=== PATIENT | female | born 1935 | race Caucasian/White ===

== ENCOUNTER → 2018-03-30 | Outpatient (CLI) | payer MEDICARE ==
[2018-03-30 14:59] LABS: INR 1.9 (<1.2); Prothrombin Time 17.7 sec (9.0-12.0)
== END | disposition home or self-care (01) ==
LOC: LABWHC1 13:58
PROVIDERS: ATTEND Internal Medicine
DX: I48.0 Paroxysmal atrial fibrillation (principal)
CPT/HCPCS: 36415; 85610

== ENCOUNTER → 2018-05-04 | Outpatient (CLI) | payer MEDICARE ==
[2018-05-04 18:15] LABS: Calcium 9.5 mg/dL (8.4-10.2); Potassium 3.6 mmol/L (3.5-5.1); Total Bilirubin 0.5 mg/dL (0.2-1.3); Total Protein 6.7 g/dL (6.3-8.2)
== END | disposition home or self-care (01) ==
LOC: LABWHC1 17:45
PROVIDERS: ATTEND Internal Medicine
DX: I25.10 Atherosclerotic heart disease of native coronary artery without angina pectoris (principal)
CPT/HCPCS: 36415; 80053

== ENCOUNTER 2018-05-28 12:00 | Emergency (ER) | payer MEDICARE ==
[2018-05-28 12:18] VITALS: TEMP 98.4
[2018-05-28 13:38] LABS: Basophils # (A) 0.1 k/uL (0-0.2); Basophils % (A) 1 %; Eosinophils # (A) 0.3 k/uL (0-0.7); Eosinophils % (A) 5 %; HCT 39.5 % (34.0-46.0); HGB 12.9 gm/dL (11.4-16.0); Lymphocytes % (A) 18 %; MCH 29.6 pg (25.0-35.0); MCHC 32.5 g/dL (31.0-37.0); MCV 90.9 fL (80.0-100.0); Mean Platelet Volume 8.9; Monocytes # (A) 0.5 k/uL (0-1.0); Monocytes % (A) 8 %; Neutrophils # (A) 3.6 k/uL (1.3-7.7); Neutrophils % (A) 65 %; Platelet Count 178 k/uL (150-450); RBC 4.35 m/uL (3.80-5.40); RDW 12.7 % (11.5-15.5); WBC 5.5 k/uL (3.8-10.6)
--- NOTE | 2018-05-28 13:43 | ED ---
General Adult HPI - General Chief complaint: Arrhythmia/Palpitations Stated complaint: NAUSEA, HYPERTENSION Time Seen by Provider: 05/28/18 13:04 Source: patient, RN notes reviewed, old records reviewed Mode of arrival: wheelchair Limitations: no limitations - History of Present Illness Initial comments: 83-year-old female presents with generalized weakness and palpitations. Patient does have history of atrial fibrillation, she is currently on Coumadin. She has had multiple medication adjustments in the past several weeks to months. She was previously on Rythmol for atrial fibrillation, this medication has been discontinued, she is currently on metoprolol. She denies any chest pain. Denies fever or chills. Denies vomiting or diarrhea. She's had some nausea. Denies focal weakness or numbness. Denies headache. Patient's chief complaint is palpitations and generalized weakness. - Related Data Home Medications Medication Instructions Recorded Confirmed Budesonide-Formot 160-4.5 Mcg 2 puff INHALATION RT-BID 05/28/18 05/28/18 [Symbicort 160-4.5 Mcg Inhaler] Cholecalciferol [Vitamin D3] 5,000 unit PO DAILY 05/28/18 05/28/18 Cholestyramine (with Sugar) 2 gm PO HS 05/28/18 05/28/18 [Cholestyramine Packet] Clopidogrel [Plavix] 75 mg PO DAILY 05/28/18 05/28/18 Furosemide [Lasix] 40 mg PO DAILY 05/28/18 05/28/18 Levothyroxine Sodium [Synthroid] 137 mcg PO DAILY 05/28/18 05/28/18 Meclizine [Antivert] 12.5 mg PO TID PRN 05/28/18 05/28/18 Metoprolol Tartrate [Lopressor] 25 mg PO BID 05/28/18 05/28/18 Omeprazole 20 mg PO QAM 05/28/18 05/28/18 Potassium Chloride [Klor-Con 10] 20 meq PO BID 05/28/18 05/28/18 Warfarin [Coumadin] 2.5 mg PO FR 05/28/18 05/28/18 Warfarin [Coumadin] 5 mg PO SUMOTUWETHSA 05/28/18 05/28/18 traMADol HCL [Ultram] 50 mg PO TID PRN 05/28/18 05/28/18 Allergies Allergy/AdvReac Type Severity Reaction Status Date / Time codeine Allergy Unknown Verified 05/28/18 13:28 meperidine [From Demerol] Allergy Unknown Verified 05/28/18 13:28 narcotics Allergy Unknown Uncoded 05/28/18 12:19 Review of Systems ROS Statement: Those systems with pertinent positive or pertinent negative responses have been documented in the HPI. ROS Other: All systems not noted in ROS Statement are negative. Past Medical History Past Medical History: Atrial Fibrillation, Cancer, COPD, GERD/Reflux, Thyroid Disorder Additional Past Medical History / Comment(s): arthritis, intestional and breast cancer, IBS, BAck pain, PMR, MS, hearing loss right ear, vertigo History of Any Multi-Drug Resistant Organisms: None Reported Past Surgical History: Back Surgery, Cholecystectomy, Heart Catheterization, Hysterectomy Additional Past Surgical History / Comment(s): cataracts Past Psychological History: No Psychological Hx Reported Smoking Status: Former smoker Past Alcohol Use History: Occasional Past Drug Use History: None Reported General Exam Limitations: no limitations General appearance: alert, in no apparent distress Head exam: Present: atraumatic, normocephalic Eye exam: Present: normal appearance, PERRL ENT exam: Present: normal exam Neck exam: Present: normal inspection. Absent: tenderness, meningismus Respiratory exam: Present: normal lung sounds bilaterally. Absent: respiratory distress, wheezes Cardiovascular Exam: Present: normal rhythm, tachycardia GI/Abdominal exam: Present: soft. Absent: distended, tenderness, guarding Extremities exam: Present: pedal edema Neurological exam: Present: alert, oriented X3, CN II-XII intact. Absent: motor sensory deficit Psychiatric exam: Present: normal affect, normal mood Skin exam: Present: warm, dry, intact. Absent: cyanosis, diaphoretic Course Vital Signs 05/28/18 05/28/18 05/28/18 12:09 14:00 15:33 Temperature 98.4 F Pulse Rate 91 80 85 Respiratory 18 16 16 Rate Blood Pressure 133/82 123/69 116/70 O2 Sat by Pulse 99 99 98 Oximetry EKG Findings - EKG Comments: EKG Findings:: EKG: Atrial fibrillation, rate of 85, QRS duration 80, QTc 476, no ST segment elevation or depression Medical Decision Making - Medical Decision Making 84-year-old female presenting with palpitations. She was concerned about fluctuating vital signs at home. However this record was reviewed and there was only mildly elevated high blood pressure at 150 systolic and heart rate ranging between 70 and 100. Patient's workup in the emergency department reveals hypokalemia at 3.0 which is replaced. Patient will supplement with oral potassium at home. Remainder of her workup is unremarkable including normal chest x-ray, negative troponin, normal additional electrolytes and CBC. Patient will follow-up with her primary care physician for repeat potassium level. She is eager for discharge. - Lab Data Result diagrams: 05/28/18 13:18 05/28/18 13:18 Lab Results 05/28/18 05/28/18 05/28/18 Range/Units 13:18 13:18 13:18 WBC 5.5 (3.8-10.6) k/uL RBC 4.35 (3.80-5.40) m/uL Hgb 12.9 (11.4-16.0) gm/dL Hct 39.5 (34.0-46.0) % MCV 90.9 (80.0-100.0) fL MCH 29.6 (25.0-35.0) pg MCHC 32.5 (31.0-37.0) g/dL RDW 12.7 (11.5-15.5) % Plt Count 178 (150-450) k/uL Neutrophils % 65 % Lymphocytes % 18 % Monocytes % 8 % Eosinophils % 5 % Basophils % 1 % Neutrophils # 3.6 (1.3-7.7) k/uL Lymphocytes # 1.0 (1.0-4.8) k/uL Monocytes # 0.5 (0-1.0) k/uL Eosinophils # 0.3 (0-0.7) k/uL Basophils # 0.1 (0-0.2) k/uL PT (9.0-12.0) sec INR (<1.2) APTT (22.0-30.0) sec Sodium 137 (137-145) mmol/L Potassium 3.0 L* (3.5-5.1) mmol/L Chloride 97 L (98-107) mmol/L Carbon Dioxide 30 (22-30) mmol/L Anion Gap 10 mmol/L BUN 29 H (7-17) mg/dL Creatinine 0.80 (0.52-1.04) mg/dL Est GFR (CKD-EPI)AfAm 80 (>60 ml/min/1.73 sqM) Est GFR (CKD-EPI)NonAf 69 (>60 ml/min/1.73 sqM) Glucose 101 H (74-99) mg/dL Calcium 9.7 (8.4-10.2) mg/dL Magnesium 1.7 (1.6-2.3) mg/dL Total Bilirubin 0.6 (0.2-1.3) mg/dL AST 35 (14-36) U/L ALT 34 (9-52) U/L Alkaline Phosphatase 79 (38-126) U/L Total Creatine Kinase 51 (30-135) U/L CK-MB (CK-2) 0.8 (0.0-2.4) ng/mL CK-MB (CK-2) Rel Index 1.6 Troponin I <0.012 (0.000-0.034) ng/mL Total Protein 6.7 (6.3-8.2) g/dL Albumin 4.0 (3.5-5.0) g/dL 05/28/18 Range/Units 13:18 WBC (3.8-10.6) k/uL RBC (3.80-5.40) m/uL Hgb (11.4-16.0) gm/dL Hct (34.0-46.0) % MCV (80.0-100.0) fL MCH (25.0-35.0) pg MCHC (31.0-37.0) g/dL RDW (11.5-15.5) % Plt Count (150-450) k/uL Neutrophils % % Lymphocytes % % Monocytes % % Eosinophils % % Basophils % % Neutrophils # (1.3-7.7) k/uL Lymphocytes # (1.0-4.8) k/uL Monocytes # (0-1.0) k/uL Eosinophils # (0-0.7) k/uL Basophils # (0-0.2) k/uL PT 22.9 H (9.0-12.0) sec INR 2.6 H (<1.2) APTT 28.9 (22.0-30.0) sec Sodium (137-145) mmol/L Potassium (3.5-5.1) mmol/L Chloride (98-107) mmol/L Carbon Dioxide (22-30) mmol/L Anion Gap mmol/L BUN (7-17) mg/dL Creatinine (0.52-1.04) mg/dL Est GFR (CKD-EPI)AfAm (>60 ml/min/1.73 sqM) Est GFR (CKD-EPI)NonAf (>60 ml/min/1.73 sqM) Glucose (74-99) mg/dL Calcium (8.4-10.2) mg/dL Magnesium (1.6-2.3) mg/dL Total Bilirubin (0.2-1.3) mg/dL AST (14-36) U/L ALT (9-52) U/L Alkaline Phosphatase (38-126) U/L Total Creatine Kinase (30-135) U/L CK-MB (CK-2) (0.0-2.4) ng/mL CK-MB (CK-2) Rel Index Troponin I (0.000-0.034) ng/mL Total Protein (6.3-8.2) g/dL Albumin (3.5-5.0) g/dL Disposition Clinical Impression: Atrial fibrillation, Palpitations, Hypokalemia Disposition: HOME SELF-CARE Condition: Good Instructions: Palpitations (ED), Hypokalemia (ED) Additional Instructions: Please follow up with primary care physician for repeat potassium Level. Is patient prescribed a controlled substance at d/c from ED?: No Referrals: Nonstaff,Physician [Primary Care Provider] - 1-2 days Time of Disposition: 15:20
[2018-05-28 13:49] LABS: INR 2.6 (<1.2); Partial Thromboplastin Time 28.9 sec (22.0-30.0); Prothrombin Time 22.9 sec (9.0-12.0)
[2018-05-28 13:55] LABS: Calcium 9.7 mg/dL (8.4-10.2); Magnesium 1.7 mg/dL (1.6-2.3); Total Bilirubin 0.6 mg/dL (0.2-1.3); Total Protein 6.7 g/dL (6.3-8.2)
--- NOTE | 2018-05-28 13:58 | XR ---
EXAMINATION TYPE: XR chest 2V DATE OF EXAM: 05/28/2018 COMPARISON: NONE TECHNIQUE: PA and lateral views submitted. HISTORY: Dysrhythmia FINDINGS: The lungs are clear and there is no pneumothorax, pleural effusion, or focal pneumonia. Biapical pl eural thickening. Atherosclerotic change aorta. Hypertrophic and degenerative change spine. Hyperinfl ation suggests COPD. Surgical clips in the abdomen. IMPRESSION: 1. No acute process.
[2018-05-28 13:59] LABS: Creatine Kinase 51 U/L (30-135)
[2018-05-28] MEDS ORDERED: POTASSIUM CHLORIDE ER 20 MEQ TAB.ER PO STA (14:03)
[2018-05-28 14:12] LABS: Creatine Kinase MB 0.8 ng/mL (0.0-2.4); Troponin I <0.012 ng/mL (0.000-0.034)
[2018-05-28 14:30] VITALS: RESP 16
[2018-05-28 15:35] VITALS: BP 116/70; PULSE 85
== END 2018-05-28 15:52 | disposition home or self-care (01) ==
LOC: EC 12:00
DX: I48.91 Unspecified atrial fibrillation (principal); R00.2 Palpitations; E87.6 Hypokalemia; J44.9 Chronic obstructive pulmonary disease, unspecified; K21.9 Gastro-esophageal reflux disease without esophagitis; E07.9 Disorder of thyroid, unspecified; Z87.891 Personal history of nicotine dependence; Z85.3 Personal history of malignant neoplasm of breast; Z85.89 Personal history of malignant neoplasm of other organs and systems; Z79.01 Long term (current) use of anticoagulants; Z79.51 Long term (current) use of inhaled steroids; Z79.899 Other long term (current) drug therapy; Z88.5 Allergy status to narcotic agent; Z95.818 Presence of other cardiac implants and grafts
CPT/HCPCS: 36415; 71046; 80053; 82550; 82553; 83735; 84484; 85025; 85610; 85730; 93005; 99285

== ENCOUNTER 2019-03-29 13:05 | Emergency (ER) | payer MEDICARE ==
--- NOTE | 2019-03-29 16:35 | XR ---
PROCEDURE: XR ankle complete RT - 3V DATE AND TIME: 03/29/2019 4:28 PM CLINICAL INDICATION: PHH; Pain TECHNIQUE: Department protocol COMPARISON: None FINDINGS: The bones and joints are unremarkable. The mortise is intact. IMPRESSION: 1. Negative for fracture or malalignment. 2. Prominent ankle soft tissue swelling.
--- NOTE | 2019-03-29 18:09 | US ---
EXAMINATION TYPE: US venous doppler duplex LE DATE OF EXAM: 03/29/2019 5:40 PM COMPARISON: NONE CLINICAL HISTORY: History of DVT, right ankle swelling, left calf pa. Pain and swelling bilateral leg s x 3 days. Pt on blood thinners. Hx DVT. Hx vein stripping. SIDE PERFORMED: Bilateral TECHNIQUE: The lower extremity deep venous system is examined utilizing real time linear array sonog silvio with graded compression, doppler sonography and color-flow sonography. VESSELS IMAGED: External Iliac Vein (EIV) Common Femoral Vein Deep Femoral Vein Greater Saphenous Vein * Femoral Vein Popliteal Vein Small Saphenous Vein * Proximal Calf Veins (* superficial vessels) IMPRESSION: RIGHT LOWER EXTREMITY: No acute DVT. LEFT LOWER EXTREMITY: No definite acute DVT. Subtle mid popliteal vein internal echoes are seen, likely sequela of previous DVT. If clinically ne cessary, short interval follow-up Doppler ultrasound can be used to add specificity.
--- NOTE | 2019-03-29 18:22 | ED ---
Recheck HPI - General Chief Complaint: Recheck/Abnormal Lab/Rx Stated Complaint: Poss blood clot Source: patient Mode of arrival: ambulatory Limitations: no limitations - History of Present Illness Initial Comments: 84-year-old female presenting today for chief complaint of left calf pain. Patient states that she developed left calf pain this morning. She states she has history of blood clot when she had breast cancer she states she has remission. She states she has not had a blood clot since is on Coumadin. She states her last INR, 5 days ago was supratherapeutic 4.19. Patient states it is repeated today. Patient unsure of the value. Patient states that she bumped her right anterior gibbs has a bruise in the area noticed swelling of the ankle shortly after that. Patient denies rolling her ankle or ankle pain. Patient states she just wanted to make sure that she did not have a blood clot of the left lower extremity she's a she presented to her primary care provider and was given a prescription for an ultrasound. Patient presents emergency department however feel patient most likely meant to present for an outpatient procedure. Patient denies a chest pain shortness of breath nausea vomiting all injury to the knee leg or calf. Patient denies any coolness or pallor of the extremity. Remaining review of systems negative - Related Data Home Medications Medication Instructions Recorded Confirmed Budesonide-Formot 160-4.5 Mcg 2 puff INHALATION RT-BID 05/28/18 05/28/18 [Symbicort 160-4.5 Mcg Inhaler] Cholecalciferol [Vitamin D3] 5,000 unit PO DAILY 05/28/18 05/28/18 Cholestyramine (with Sugar) 2 gm PO HS 05/28/18 05/28/18 [Cholestyramine Packet] Clopidogrel [Plavix] 75 mg PO DAILY 05/28/18 05/28/18 Furosemide [Lasix] 40 mg PO DAILY 05/28/18 05/28/18 Levothyroxine Sodium [Synthroid] 137 mcg PO DAILY 05/28/18 05/28/18 Meclizine [Antivert] 12.5 mg PO TID PRN 05/28/18 05/28/18 Metoprolol Tartrate [Lopressor] 25 mg PO BID 05/28/18 05/28/18 Omeprazole 20 mg PO QAM 05/28/18 05/28/18 Potassium Chloride [Klor-Con 10] 20 meq PO BID 05/28/18 05/28/18 Warfarin [Coumadin] 2.5 mg PO FR 05/28/18 05/28/18 Warfarin [Coumadin] 5 mg PO SUMOTUWETHSA 05/28/18 05/28/18 traMADol HCL [Ultram] 50 mg PO TID PRN 05/28/18 05/28/18 Allergies Allergy/AdvReac Type Severity Reaction Status Date / Time codeine Allergy Unknown Verified 03/29/19 14:39 meperidine [From Demerol] Allergy Unknown Verified 03/29/19 14:39 narcotics Allergy Unknown Uncoded 03/29/19 14:39 Review of Systems ROS Statement: Those systems with pertinent positive or pertinent negative responses have been documented in the HPI. ROS Other: All systems not noted in ROS Statement are negative. Past Medical History Past Medical History: Atrial Fibrillation, Cancer, COPD, GERD/Reflux, Thyroid Disorder Additional Past Medical History / Comment(s): arthritis, intestional and breast cancer, IBS, BAck pain, PMR, MS, hearing loss right ear, vertigo History of Any Multi-Drug Resistant Organisms: None Reported Past Surgical History: Back Surgery, Cholecystectomy, Heart Catheterization, Hysterectomy Additional Past Surgical History / Comment(s): cataracts Past Psychological History: No Psychological Hx Reported Smoking Status: Former smoker Past Alcohol Use History: Occasional Past Drug Use History: None Reported General Exam - General Exam Comments Initial Comments: General: The patient is awake and alert, in no distress, and does not appear acutely ill. Eye: Pupils are equal, round and reactive to light, extra-ocular movements are intact. No nystagmus. There is normal conjunctiva bilaterally. No signs of icterus. Ears, nose, mouth and throat: There are moist mucous membranes and no oral lesions. Neck: The neck is supple, there is no tenderness or JVD. Cardiovascular: There is a regular rate and rhythm. No murmur, rub or gallop is appreciated. Respiratory: Lungs are clear to auscultation, respirations are non-labored, breath sounds are equal. No wheezes, stridor, rales, or rhonchi. Gastrointestinal: Soft, non-distended, non-tender abdomen without masses or organomegaly noted. There is no rebound or guarding present. No CVA tenderness. Bowel sounds are unremarkable. Neurological: A&O x 3. CN II-XII intact, There are no obvious motor or sensory deficits. Coordination appears grossly intact. Speech is normal. Skin: Skin is warm and dry and no rashes. No trauma of the right lower aspect of lower extremity, there is soft tissue swelling on the right ankle. No pittin g edema. No pitting edema of the left LE. Tenderness to palpation of the left posterior calf. No boggieness of achillles, pt can weight bear, percent plantar proximal of the ankles bilaterally. No pain to palpation of the knees. +2 DP pulses b/l, warm to palpation Psychiatric: Cooperative, appropriate mood & affect, normal judgment. Limitations: no limitations Course Vital Signs 03/29/19 03/29/19 14:35 18:25 Temperature 97.8 F 97.5 F L Pulse Rate 71 70 Respiratory 18 16 Rate Blood Pressure 135/87 136/87 O2 Sat by Pulse 98 99 Oximetry Medical Decision Making - Medical Decision Making Pleasant 84-year-old female presenting for rule out DVT of the left lower extremity. Bilateral ultrasound of the evidence of acute DVT. There was small area indicative of possible previous left-sided DVT which correlates with estephanie nt's past medical history. I did recommend repeat ultrasound if symptoms persist patient verbalized understanding. Patient is a pitting edema of the left lower extremity. There is no evidence of inducible Achilles tendon. Patient denies any fall or direct trauma to the left lower extremity. Extremity patient didn't hit the anterior gibbs imaging studies revealing no acute osseous process. The patient has a hematoma, that most likely progressed into swelling of the right ankle joint due to gravity. Patient on multiple occasions before imaging results came back attempted to leave the ED, I urged patient to stay. Patient is supratherapeutic on her Coumadin I have low suspicion for a acute venous thrombosis, pt requesting discharge and feel patient may leave with primary care f/u. Pt discharged without d/c VS due to attempting to leave without discharge paper work. Disposition Clinical Impression: Right leg swelling, Pain of left calf Disposition: HOME SELF-CARE Condition: Good Instructions (If sedation given, give patient instructions): Leg Edema (ED) Additional Instructions: Please use medication as discussed. Please follow-up with family doctor in the next 2 days. Please return to emergency room if the symptoms increase or worsen or for any other concerns. Is patient prescribed a controlled substance at d/c from ED?: No Referrals: Nonstaff,Physician [Primary Care Provider] - 1-2 days Time of Disposition: 18:21
[2019-03-29 18:26] VITALS: BP 136/87; PULSE 70; RESP 16; TEMP 97.5
== END 2019-03-29 18:24 | disposition home or self-care (01) ==
LOC: EC 13:05
DX: M79.605 Pain in left leg (principal); M79.89 Other specified soft tissue disorders; I48.91 Unspecified atrial fibrillation; J44.9 Chronic obstructive pulmonary disease, unspecified; K21.9 Gastro-esophageal reflux disease without esophagitis; E07.9 Disorder of thyroid, unspecified; K58.9 Irritable bowel syndrome, unspecified; Z85.3 Personal history of malignant neoplasm of breast; Z87.891 Personal history of nicotine dependence; Z79.01 Long term (current) use of anticoagulants; Z79.899 Other long term (current) drug therapy; Z79.51 Long term (current) use of inhaled steroids; Z79.890 Hormone replacement therapy; Z88.5 Allergy status to narcotic agent; Z95.818 Presence of other cardiac implants and grafts
CPT/HCPCS: 93970; 99284

== ENCOUNTER 2019-04-17 17:53 | Emergency (ER) | payer MEDICARE ==
--- NOTE | 2019-04-17 18:06 | ED ---
General Adult HPI - General Stated complaint: Fall Time Seen by Provider: 04/17/19 17:56 - History of Present Illness Initial comments: Dictation was produced using lmbang dictation software. please excuse any grammatical, word or spelling errors. Chief Complaint: 84-year-old female past medical history atrial fibrillation presents with mechanical fall. History of Present Illness: Patient is 84-year-old female she takes Coumadin for atrial fibrillation. She states she was walking up a step when she tripped over her left foot. She states she fell to her right knee. She states she hit her head on the storm door. She complains of mild pain to her left forehead and left maxillary area. Patient denies any pain anywhere else in her body. She did complain of some mild knee pain after the accident however that has since subsided. She is able to carry on scene. Told EMS and was brought to the emergency department. The ROS documented in this emergency department record has been reviewed and confirmed by me. Those systems with pertinent positive or negative responses have been documented in the HPI. All other systems are other negative and/or noncontributory. PHYSICAL EXAM: General Impression: Alert and oriented x3, not in acute distress HEENT: Minimal ecchymoses in the left lateral periorbital area, extra-ocular movements intact, pupils equal and reactive to light bilaterally, mucous membranes moist. Cardiovascular: Heart regular rate and rhythm, S1&S2 audible, no murmurs, rubs or gallops Chest: Lungs clear to auscultation bilaterally, no rhonchi, no wheeze, no rales Abdomen: Bowel sounds present, abdomen soft, non-tender, non-distended, no organomegaly Musculoskeletal: Pulses present and equal in all extremities, no peripheral edema Motor: no focal deficits noted Neurological: CN II-XII grossly intact, no focal motor or sensory deficits noted Skin: Intact with no visualized rashes Psych: Normal affect and mood ED course: 84 y Old female presents with head injury status post fall. Signs upon arrival are within acceptable limits. Patient's well-appearing. Patient is on Coumadin. Laboratory evaluation obtained. CBC, coag panel and metabolic panels obtained. Patient's potassium slightly low. She is told to eat bananas or high potassium foods for the remainder of the week. INR is 1.9. Computed tomography scan of the head and face and neck shows no acute processes. Patient clear for discharge. Given by mouth potassium prior to discharge. Return parameters discussed. - Related Data Home Medications Medication Instructions Recorded Confirmed Cholecalciferol [Vitamin D3] 5,000 unit PO DAILY 05/28/18 04/17/19 Cholestyramine (with Sugar) 2 gm PO HS 05/28/18 04/17/19 [Cholestyramine Packet] Clopidogrel [Plavix] 75 mg PO DAILY 05/28/18 04/17/19 Furosemide [Lasix] 40 mg PO DAILY 05/28/18 04/17/19 Metoprolol Tartrate [Lopressor] 25 mg PO BID 05/28/18 04/17/19 Omeprazole 20 mg PO DAILY 05/28/18 04/17/19 Warfarin [Coumadin] 2.5 mg PO WEFR 05/28/18 04/17/19 Warfarin [Coumadin] 5 mg PO SUMOTUTHSA 05/28/18 04/17/19 Albuterol Sulfate [Proair Hfa] 2 puff INHALATION RT-QID PRN 04/17/19 04/17/19 Allopurinol [Zyloprim] 100 mg PO DAILY 04/17/19 04/17/19 Fluticasone Nasal [place] [Flonase 2 spr EA NOSTRIL DAILY 04/17/19 04/17/19 Nasal [place]] Fluticasone/Salmeterol [Advair 1 puff INHALATION RT-BID 04/17/19 04/17/19 250-50 Diskus] Ipratropium Nebulized [Atrovent 0.25 mg INHALATION RT-BID PRN 04/17/19 04/17/19 Nebulized 0.2 MG/ML] Levalbuterol HCl [Xopenex 0.315 mg INHALATION RT-BID PRN 04/17/19 04/17/19 Nebulized] Levothyroxine Sodium [Synthroid] 100 mcg PO DAILY 04/17/19 04/17/19 Metolazone [Zaroxolyn] 2.5 mg PO MOWEFR 04/17/19 04/17/19 Potassium Chloride ER [K-Dur 20] 40 meq PO DAILY 04/17/19 04/17/19 Rosuvastatin Calcium [Crestor] 5 mg PO HS 04/17/19 04/17/19 Zinc 50 mg PO DAILY 04/17/19 04/17/19 Allergies Allergy/AdvReac Type Severity Reaction Status Date / Time codeine Allergy Unknown Verified 04/17/19 18:44 meperidine [From Demerol] Allergy Unknown Verified 04/17/19 18:44 narcotics Allergy Unknown Uncoded 04/17/19 18:44 Review of Systems ROS Statement: Those systems with pertinent positive or pertinent negative responses have been documented in the HPI. ROS Other: All systems not noted in ROS Statement are negative. Past Medical History Past Medical History: Atrial Fibrillation, Cancer, COPD, GERD/Reflux, Thyroid Disorder Additional Past Medical History / Comment(s): arthritis, intestional and breast cancer, IBS, BAck pain, PMR, MS, hearing loss right ear, vertigo History of Any Multi-Drug Resistant Organisms: None Reported Past Surgical History: Back Surgery, Cholecystectomy, Heart Catheterization, Hysterectomy Additional Past Surgical History / Comment(s): cataracts Past Psychological History: No Psychological Hx Reported Smoking Status: Former smoker Past Alcohol Use History: Occasional Past Drug Use History: None Reported Course Vital Signs 04/17/19 18:04 Temperature 97.9 F Pulse Rate 88 Respiratory 18 Rate Blood Pressure 147/90 O2 Sat by Pulse 97 Oximetry Medical Decision Making - Lab Data Result diagrams: 04/17/19 18:15 04/17/19 18:15 Lab Results 04/17/19 04/17/19 04/17/19 Range/Units 18:15 18:15 18:15 WBC 7.4 (3.8-10.6) k/uL RBC 4.32 (3.80-5.40) m/uL Hgb 12.8 (11.4-16.0) gm/dL Hct 39.5 (34.0-46.0) % MCV 91.5 (80.0-100.0) fL MCH 29.7 (25.0-35.0) pg MCHC 32.5 (31.0-37.0) g/dL RDW 14.1 (11.5-15.5) % Plt Count 169 (150-450) k/uL Neutrophils % 72 % Lymphocytes % 16 % Monocytes % 7 % Eosinophils % 3 % Basophils % 1 % Neutrophils # 5.3 (1.3-7.7) k/uL Lymphocytes # 1.2 (1.0-4.8) k/uL Monocytes # 0.5 (0-1.0) k/uL Eosinophils # 0.2 (0-0.7) k/uL Basophils # 0.1 (0-0.2) k/uL PT 18.4 H (9.0-12.0) sec INR 1.9 H (<1.2) Sodium 138 (137-145) mmol/L Potassium 3.1 L (3.5-5.1) mmol/L Chloride 95 L (98-107) mmol/L Carbon Dioxide 34 H (22-30) mmol/L Anion Gap 9 mmol/L BUN 31 H (7-17) mg/dL Creatinine 0.96 (0.52-1.04) mg/dL Est GFR (CKD-EPI)AfAm 63 (>60 ml/min/1.73 sqM) Est GFR (CKD-EPI)NonAf 55 (>60 ml/min/1.73 sqM) Glucose 120 H (74-99) mg/dL Calcium 9.5 (8.4-10.2) mg/dL Disposition Clinical Impression: Fall, Head contusion Disposition: HOME SELF-CARE Condition: Good Instructions (If sedation given, give patient instructions): Fall Prevention for Older Adults (ED) Is patient prescribed a controlled substance at d/c from ED?: No Referrals: Nonstaff,Physician [Primary Care Provider] - 1-2 days Time of Disposition: 19:29
[2019-04-17 18:08] VITALS: RESP 18; TEMP 97.9
[2019-04-17 18:35] LABS: Basophils # (A) 0.1 k/uL (0-0.2); Basophils % (A) 1 %; Eosinophils # (A) 0.2 k/uL (0-0.7); Eosinophils % (A) 3 %; HCT 39.5 % (34.0-46.0); HGB 12.8 gm/dL (11.4-16.0); Lymphocytes # (A) 1.2 k/uL (1.0-4.8); Lymphocytes % (A) 16 %; MCH 29.7 pg (25.0-35.0); MCHC 32.5 g/dL (31.0-37.0); MCV 91.5 fL (80.0-100.0); Mean Platelet Volume 8.5; Monocytes # (A) 0.5 k/uL (0-1.0); Monocytes % (A) 7 %; Neutrophils # (A) 5.3 k/uL (1.3-7.7); Neutrophils % (A) 72 %; Platelet Count 169 k/uL (150-450); RBC 4.32 m/uL (3.80-5.40); RDW 14.1 % (11.5-15.5); WBC 7.4 k/uL (3.8-10.6)
[2019-04-17 18:40] LABS: INR 1.9 (<1.2); Prothrombin Time 18.4 sec (9.0-12.0)
[2019-04-17 18:47] LABS: Calcium 9.5 mg/dL (8.4-10.2); Potassium 3.1 mmol/L (3.5-5.1)
--- NOTE | 2019-04-17 19:06 | CT ---
EXAMINATION TYPE: CT brain cspine wo con, CT facial bones wo con DATE OF EXAM: 04/17/2019 COMPARISON: NONE HISTORY: Falling injury with headache and neck pain and facial pain.. CT DLP: combined 1089.6 mGycm. Automated Exposure Control for Dose Reduction was Utilized. TECHNIQUE: CT scan of the head, facial bones, and cervical spine are performed without contrast. FINDINGS: There is no acute intracranial hemorrhage or midline shift identified. Mild ventricular a nd sulcal prominence is present. Low-attenuation in the deep and periventricular white matter is seen . The calvarium is intact. The mandible is intact. Temporomandibular joints are maintained bilaterally. Nasal bones are intact. Zygomatic arches are intact. Orbital floors and welch are intact. There is left-sided scleral buckle noted. Some patchy fluid posterior medial left sphenoid sinus is present otherwise the paranasal sinu ses are clear. Pterygoid plates are intact. Cervical spine is visualized in its entirety from C1 through upper thoracic levels and demonstrates s traightened alignment without evidence of acute fracture or dislocation. Prevertebral soft tissue ap pears within normal limits. The C1-C2 articulation is within normal limits on the coronal images. Ve rtebral body heights are maintained. Moderate disc space narrowing C5-C6 level is seen with mild to m oderate anterior and posterior spurring. There is mild disc space narrowing C6-C7 level with mild pos terior spurring. Axial images show uncovertebral facet degenerative changes at several levels bilater ally. Reference right C3-C4 level causing asymmetric [id number] right-sided neural foraminal na rrowing. Thyroid gland is atrophic or absent. Lung apices show no pneumothorax. IMPRESSION: 1. There is no acute fracture or dislocation evident in the cervical spine. 2. No acute intracranial hemorrhage or midline shift is seen. Mild diffuse cerebral atrophy and chron ic small vessel ischemic change is appreciated. 3. No acute facial bone fracture or dislocation.
[2019-04-17] MEDS ORDERED: POTASSIUM CHLORIDE ER 20 MEQ TAB.ER PO STA (19:40)
[2019-04-17 19:53] VITALS: BP 142/91; PULSE 69
== END 2019-04-17 19:52 | disposition home or self-care (01) ==
LOC: EC 17:53
DX: S00.12XA Contusion of left eyelid and periocular area, initial encounter (principal); R68.84 Jaw pain; E07.9 Disorder of thyroid, unspecified; I48.91 Unspecified atrial fibrillation; J44.9 Chronic obstructive pulmonary disease, unspecified; K21.9 Gastro-esophageal reflux disease without esophagitis; H91.91 Unspecified hearing loss, right ear; Z87.891 Personal history of nicotine dependence; Z79.51 Long term (current) use of inhaled steroids; Z79.01 Long term (current) use of anticoagulants; Z79.899 Other long term (current) drug therapy; Z88.5 Allergy status to narcotic agent; Z85.068 Personal history of other malignant neoplasm of small intestine; Z90.49 Acquired absence of other specified parts of digestive tract; Z85.3 Personal history of malignant neoplasm of breast; Z98.49 Cataract extraction status, unspecified eye; W01.198A Fall on same level from slipping, tripping and stumbling with subsequent striking against other object, initial encounter; Y93.01 Activity, walking, marching and hiking
CPT/HCPCS: 36415; 70450; 70486; 72125; 80048; 85025; 85610; 99284

== ENCOUNTER 2019-04-30 14:52 | Observation (INO) | payer MEDICARE ==
[2019-04-30] MEDS ORDERED: PANTOPRAZOLE 40 MG/10 ML VIAL IVP STA (15:19)
[2019-04-30] MEDS ORDERED: SODIUM CHLORIDE 0.9% 500 ML 500 ML IV STA (15:19)
--- NOTE | 2019-04-30 15:30 | ED ---
General Adult HPI - General Chief complaint: GI Bleed Stated complaint: Black stools Time Seen by Provider: 04/30/19 15:19 Source: patient, RN notes reviewed Mode of arrival: ambulatory - History of Present Illness Initial comments: 84-year-old female with a past medical history of atrial fibrillation, breast and intestinal cancer, IBS, GERD, COPD, thyroid cancer presents to the emergency department for a chief complaint of diarrhea 4 days. Patient states she has had diarrhea quite often over the past 4 days. She has had left lower quadrant abdominal pain as well. Patient states today she noticed she had one black stool. No history of peptic ulcer disease. Patient currently on Coumadin for atrial fibrillation. Patient denies weakness. Patient also hit her right foot today while walking and did have some bleeding as it scraped her skin. No pain in the foot at this time. Bleeding controlled. Tetanus up-to-date.Patient has no other complaints at this time including shortness of breath, chest pain, nausea or vomiting, headache, or visual changes. - Related Data Home Medications Medication Instructions Recorded Confirmed Cholecalciferol [Vitamin D3] 5,000 unit PO DAILY 05/28/18 04/17/19 Cholestyramine (with Sugar) 2 gm PO HS 05/28/18 04/17/19 [Cholestyramine Packet] Clopidogrel [Plavix] 75 mg PO DAILY 05/28/18 04/17/19 Furosemide [Lasix] 40 mg PO DAILY 05/28/18 04/17/19 Metoprolol Tartrate [Lopressor] 25 mg PO BID 05/28/18 04/17/19 Omeprazole 20 mg PO DAILY 05/28/18 04/17/19 Warfarin [Coumadin] 2.5 mg PO WEFR 05/28/18 04/17/19 Warfarin [Coumadin] 5 mg PO SUMOTUTHSA 05/28/18 04/17/19 Albuterol Sulfate [Proair Hfa] 2 puff INHALATION RT-QID PRN 04/17/19 04/17/19 Allopurinol [Zyloprim] 100 mg PO DAILY 04/17/19 04/17/19 Fluticasone Nasal [place] [Flonase 2 spr EA NOSTRIL DAILY 04/17/19 04/17/19 Nasal [place]] Fluticasone/Salmeterol [Advair 1 puff INHALATION RT-BID 04/17/19 04/17/19 250-50 Diskus] Ipratropium Nebulized [Atrovent 0.25 mg INHALATION RT-BID PRN 04/17/19 04/17/19 Nebulized 0.2 MG/ML] Levalbuterol HCl [Xopenex 0.315 mg INHALATION RT-BID PRN 04/17/19 04/17/19 Nebulized] Levothyroxine Sodium [Synthroid] 100 mcg PO DAILY 04/17/19 04/17/19 Metolazone [Zaroxolyn] 2.5 mg PO MOWEFR 04/17/19 04/17/19 Potassium Chloride ER [K-Dur 20] 40 meq PO DAILY 04/17/19 04/17/19 Rosuvastatin Calcium [Crestor] 5 mg PO HS 04/17/19 04/17/19 Zinc 50 mg PO DAILY 04/17/19 04/17/19 Allergies Allergy/AdvReac Type Severity Reaction Status Date / Time codeine Allergy Unknown Verified 04/30/19 14:59 meperidine [From Demerol] Allergy Unknown Verified 04/30/19 14:59 narcotics Allergy Unknown Uncoded 04/30/19 14:59 Review of Systems ROS Statement: Those systems with pertinent positive or pertinent negative responses have been documented in the HPI. ROS Other: All systems not noted in ROS Statement are negative. Past Medical History Past Medical History: Atrial Fibrillation, Cancer, COPD, GERD/Reflux, Thyroid Di sorder Additional Past Medical History / Comment(s): arthritis, intestional and breast cancer, IBS, BAck pain, PMR, MS, hearing loss right ear, vertigo History of Any Multi-Drug Resistant Organisms: None Reported Past Surgical History: Back Surgery, Cholecystectomy, Heart Catheterization, Hysterectomy Additional Past Surgical History / Comment(s): cataracts Past Psychological History: No Psychological Hx Reported Smoking Status: Former smoker Past Alcohol Use History: Occasional Past Drug Use History: None Reported General Exam General appearance: alert, in no apparent distress Head exam: Present: atraumatic, normocephalic, normal inspection Eye exam: Present: normal appearance, PERRL, EOMI. Absent: scleral icterus, conjunctival injection, periorbital swelling ENT exam: Present: normal exam, mucous membranes moist Neck exam: Present: normal inspection, full ROM. Absent: tenderness, meningismus, lymphadenopathy Respiratory exam: Present: normal lung sounds bilaterally. Absent: respiratory distress, wheezes, rales, rhonchi, stridor Cardiovascular Exam: Present: regular rate, normal rhythm, normal heart sounds. Absent: systolic murmur, diastolic murmur, rubs, gallop, clicks GI/Abdominal exam: Present: soft, tenderness (Tenderness noted in the left lower quadrant, no guarding or rebound), normal bowel sounds. Absent: distended, guarding, rebound, rigid Extremities exam: Present: other (Patient has a small skin tear noted to the right third digit. Bleeding controlled. No bruising. Neurovascular status intact in the right lower extremity.) Neurological exam: Present: alert, oriented X3, CN II-XII intact Psychiatric exam: Present: normal affect, normal mood Course Vital Signs 04/30/19 04/30/19 04/30/19 14:56 15:58 17:15 Temperature 98.4 F Pulse Rate 104 H 103 H 93 Respiratory 18 16 16 Rate Blood Pressure 137/92 110/84 122/68 O2 Sat by Pulse 97 98 94 L Oximetry Medical Decision Making - Medical Decision Making 84-year-old female presents to the emergency department for a chief complaint of dark stools times one episode. Patient has had diarrhea for the past few days as well. On exam she does have left lower quadrant tenderness. Patient was st arted on Protonix. CBC unremarkable. Patient is on Coumadin, PT/INR 3.7. CMP does show a potassium of 3.0, replaced with IV and oral replacement. Magnesium 1.8. Patient was given 2.5 of oral vitamin K due to GI bleed and positive occult blood with Coumadin. CT abdomen and pelvis shows diffuse thickening of the stomach within the gastric body and fundus. Considering patient's history of black stools gastric neoplasm or peptic ulcer disease are considerations. Questionable ulcer noted of the fundal lesser curvature. Acute uncomplicated Long segment colitis also noted. There is also dilation of the small bowel at a small bowel anastomotic site in the right mid abdomen and small bowel feces sign in both indicating increased transit time. Stricture should be considered. She will be continued on Protonix. GI will be consulted. She will be admitted for further management. - Lab Data Result diagrams: 04/30/19 15:50 04/30/19 15:50 Lab Results 04/30/19 04/30/19 04/30/19 Range/Units 15:44 15:45 15:50 WBC (3.8-10.6) k/uL RBC (3.80-5.40) m/uL Hgb (11.4-16.0) gm/dL Hct (34.0-46.0) % MCV (80.0-100.0) fL MCH (25.0-35.0) pg MCHC (31.0-37.0) g/dL RDW (11.5-15.5) % Plt Count (150-450) k/uL Neutrophils % % Lymphocytes % % Monocytes % % Eosinophils % % Basophils % % Neutrophils # (1.3-7.7) k/uL Lymphocytes # (1.0-4.8) k/uL Monocytes # (0-1.0) k/uL Eosinophils # (0-0.7) k/uL Basophils # (0-0.2) k/uL PT 35.7 H (9.0-12.0) sec INR 3.7 H (<1.2) APTT 36.5 H (22.0-30.0) sec Sodium (137-145) mmol/L Potassium (3.5-5.1) mmol/L Chloride (98-107) mmol/L Carbon Dioxide (22-30) mmol/L Anion Gap mmol/L BUN (7-17) mg/dL Creatinine (0.52-1.04) mg/dL Est GFR (CKD-EPI)AfAm (>60 ml/min/1.73 sqM) Est GFR (CKD-EPI)NonAf (>60 ml/min/1.73 sqM) Glucose (74-99) mg/dL Calcium (8.4-10.2) mg/dL Magnesium (1.6-2.3) mg/dL Total Bilirubin (0.2-1.3) mg/dL AST (14-36) U/L ALT (9-52) U/L Alkaline Phosphatase (38-126) U/L Total Protein (6.3-8.2) g/dL Albumin (3.5-5.0) g/dL Stool Occult Blood Positive H (Negative) Blood Type Blood Type Confirm A Positive Blood Type Recheck Antibody Screen Spec Expiration Date 04/30/19 04/30/19 04/30/19 Range/Units 15:50 15:50 15:50 WBC 9.6 (3.8-10.6) k/uL RBC 4.15 (3.80-5.40) m/uL Hgb 12.7 (11.4-16.0) gm/dL Hct 37.9 (34.0-46.0) % MCV 91.4 (80.0-100.0) fL MCH 30.5 (25.0-35.0) pg MCHC 33.4 (31.0-37.0) g/dL RDW 14.1 (11.5-15.5) % Plt Count 195 (150-450) k/uL Neutrophils % 80 % Lymphocytes % 9 % Monocytes % 6 % Eosinophils % 3 % Basophils % 1 % Neutrophils # 7.6 (1.3-7.7) k/uL Lymphocytes # 0.9 L (1.0-4.8) k/uL Monocytes # 0.6 (0-1.0) k/uL Eosinophils # 0.2 (0-0.7) k/uL Basophils # 0.1 (0-0.2) k/uL PT (9.0-12.0) sec INR (<1.2) APTT (22.0-30.0) sec Sodium 136 L (137-145) mmol/L Potassium 3.0 L (3.5-5.1) mmol/L Chloride 94 L (98-107) mmol/L Carbon Dioxide 31 H (22-30) mmol/L Anion Gap 11 mmol/L BUN 19 H (7-17) mg/dL Creatinine 1.00 (0.52-1.04) mg/dL Est GFR (CKD-EPI)AfAm 61 (>60 ml/min/1.73 sqM) Est GFR (CKD-EPI)NonAf 53 (>60 ml/min/1.73 sqM) Glucose 133 H (74-99) mg/dL Calcium 9.6 (8.4-10.2) mg/dL Magnesium 1.8 (1.6-2.3) mg/dL Total Bilirubin 0.7 (0.2-1.3) mg/dL AST 28 (14-36) U/L ALT 16 (9-52) U/L Alkaline Phosphatase 72 (38-126) U/L Total Protein 6.4 (6.3-8.2) g/dL Albumin 4.0 (3.5-5.0) g/dL Stool Occult Blood (Negative) Blood Type A Positive Blood Type Confirm Blood Type Recheck No Previous Record Antibody Screen NEGATIVE Spec Expiration Date 05/03/2019 - 235 Disposition Clinical Impression: Melena, Gastric wall thickening, Colitis Disposition: ADMITTED IP TO THIS [facility] Condition: Fair Is patient prescribed a controlled substance at d/c from ED?: No Referrals: Nonstaff,Physician [Primary Care Provider] - 1-2 days Time of Disposition: 18:30
[2019-04-30 16:05] LABS: Basophils # (A) 0.1 k/uL (0-0.2); Basophils % (A) 1 %; Eosinophils # (A) 0.2 k/uL (0-0.7); Eosinophils % (A) 3 %; HCT 37.9 % (34.0-46.0); HGB 12.7 gm/dL (11.4-16.0); Lymphocytes # (A) 0.9 k/uL (1.0-4.8); Lymphocytes % (A) 9 %; MCH 30.5 pg (25.0-35.0); MCHC 33.4 g/dL (31.0-37.0); MCV 91.4 fL (80.0-100.0); Mean Platelet Volume 8.5; Monocytes # (A) 0.6 k/uL (0-1.0); Monocytes % (A) 6 %; Neutrophils # (A) 7.6 k/uL (1.3-7.7); Neutrophils % (A) 80 %; Platelet Count 195 k/uL (150-450); RBC 4.15 m/uL (3.80-5.40); RDW 14.1 % (11.5-15.5); WBC 9.6 k/uL (3.8-10.6)
[2019-04-30 16:19] LABS: INR 3.7 (<1.2); Partial Thromboplastin Time 36.5 sec (22.0-30.0); Prothrombin Time 35.7 sec (9.0-12.0)
[2019-04-30 16:25] LABS: Calcium 9.6 mg/dL (8.4-10.2); Magnesium 1.8 mg/dL (1.6-2.3); Total Bilirubin 0.7 mg/dL (0.2-1.3); Total Protein 6.4 g/dL (6.3-8.2)
--- NOTE | 2019-04-30 17:28 | CT ---
EXAMINATION TYPE: CT abdomen pelvis w con DATE OF EXAM: 04/30/2019 HISTORY: Pt c/o stomach pain and black stool. CT DLP: 878.3mGycm Automated Exposure Control for Dose Reduction was Utilized. CONTRAST: CT scan of the abdomen and pelvis is performed with IV Contrast, patient injected with 80 mL of Isovu e 300. COMPARISON: None. FINDINGS: LUNG BASES: Multifocal pleural thickening may be due to the basis of adjacent subsegmental atelectasi s. Right breast implant is partially visualized. Coronary artery stent is seen. Small hiatal hernia i s present. LIVER/GB: Hepatic parenchyma is diffusely hypoattenuated in comparison to that of the spleen, most co mmonly seen in hepatic steatosis. This finding limits evaluation for hepatic masses. Subcentimeter to o small to accurately characterize hepatic lesion is seen along the fissure for the falciform ligamen t on image 29.. No intrahepatic biliary ductal dilatation. Gallbladder surgically absent. PANCREAS: No significant abnormality is seen. SPLEEN: No significant abnormality is seen. ADRENALS: Slight nodularity of the adrenal glands is seen without discrete 1 cm or larger nodule. Fin dings could relate to adrenal gland hyperplasia.. KIDNEYS: No significant abnormality is seen. BOWEL: Subtle fat stranding is seen in the sigmoid colon and descending colon extending to the level of the splenic flexure. Diffuse thickening of the stomach is seen including the gastric fundus and syl dy. Questionable ulceration is seen of the fundal lesser curvature on image 26. Numerous surgical cli ps are seen in the ventral abdomen. Bowel is incompletely evaluated without contrast. Dilation of the small bowel anastomotic site in the right midabdomen is seen with small bowel feces sign indicative of increased transit time. Remainder of the small bowel remains nondilated. LYMPH NODES: No greater than 1cm abdominal or pelvic lymph nodes are appreciated. OSSEOUS STRUCTURES: No significant abnormality is seen. OTHER: Inferior vena cava filter is incidentally noted. Extensive atherosclerosis of the abdominal ao rta and its branches are seen. Aortoiliac stent is present. IMPRESSION: 1. Diffuse thickening of the stomach is seen within the gastric body and fundus. Considering this pat ient's history of black stools gastric neoplasm or peptic ulcer disease are considerations. There is a questionable ulcer of the fundal lesser curvature. Direct visualization is recommended. 2. Acute uncomplicated long segment colitis may be of infectious or inflammatory etiology. 3. Dilation of the small bowel at a small bowel anastomotic site in the right mid abdomen and small b owel feces sign in both indicating increased transit time. Main to the small bowel is nondilated. Shaye stomotic stricture should be considered.
[2019-04-30] MEDS ORDERED: POTASSIUM CHLORIDE ER 20 MEQ TAB.ER PO STA (17:46)
[2019-04-30] MEDS ORDERED: PHYTONADIONE ORAL 5 MG/5 ML ORAL.SYRG PO STA (17:46)
[2019-04-30] MEDS ORDERED: MORPHINE SULFATE 4 MG/ML SYRINGE IV PRN (18:31)
[2019-04-30] MEDS ORDERED: NALOXONE 0.4 MG/ML 1 ML VIAL IV PRN (18:31)
[2019-04-30] MEDS: POTASSIUM CHLORIDE 10 MEQ in WATER FOR INJECTION 1 100ML.BAG IVPB SCH ×4 (18:32→23:41)
[2019-04-30] MEDS: SODIUM CHLORIDE 0.9% 1,000 ML IV SCH (19:59)
[2019-04-30] MEDS ORDERED: IPRATROPIUM 0.5 MG/2.5 ML NEBU INHALATION PRN (20:35)
[2019-04-30] MEDS ORDERED: ALBUTEROL NEBULIZED 1.25 MG/3 ML INHALATION PRN (21:00)
[2019-04-30] MEDS: METOPROLOL TARTRATE 25 MG TAB PO SCH (22:03)
[2019-04-30] MEDS: PANTOPRAZOLE 40 MG/10 ML VIAL IVP SCH (22:04)
[2019-05-01] MEDS: ZOLPIDEM 5 MG TAB PO PRN (01:20)
[2019-05-01] MEDS: LEVOTHYROXINE 100 MCG TAB PO SCH (05:51)
[2019-05-01] MEDS ORDERED: SYMBICORT 80-4.5 MCG INHALER INHALATION SCH (08:00)
[2019-05-01] MEDS: METOPROLOL TARTRATE 25 MG TAB PO SCH ×2 (08:13→22:26)
[2019-05-01] MEDS: PANTOPRAZOLE 40 MG/10 ML VIAL IVP SCH ×2 (08:13→22:26)
[2019-05-01] MEDS: FUROSEMIDE 40 MG TAB PO SCH (08:13)
[2019-05-01] MEDS: POTASSIUM CHLORIDE ER 20 MEQ TAB.ER PO SCH ×5 (08:13→23:39)
[2019-05-01] MEDS: SODIUM CHLORIDE 0.9% 1,000 ML IV SCH ×2 (08:27→22:27)
[2019-05-01] MEDS ORDERED: PANTOPRAZOLE 40 MG TABLET PO SCH (09:00)
[2019-05-01] MEDS: FLUTICASONE 50MCG/SPRAY NASAL 16GM EA NOSTRIL SCH (09:27)
--- NOTE | 2019-05-01 10:59 | CONS ---
CONSULTATION DATE OF DICTATION: May 01, 2019. REQUESTING PHYSICIAN: Dr. Elida Garcia. REASON FOR CONSULTATION: Abdominal pain, melena and diarrhea. HISTORY OF PRESENT ILLNESS: The patient is an 84-year-old pleasant white female with history of atrial fibrillation on Coumadin, history of non-Hodgkin's lymphoma diagnosed 15 years ago in clinical remission, who was admitted to the hospital because of diarrhea for the last 4 days duration. She was having about 5-10 loose watery bowel movements daily but however, yesterday morning she noticed black tarry stools and also was complaining of lower abdominal cramping pain and some pain in the epigastric area. She was given antibiotics 2 weeks ago for sinus infection. She came into the emergency room and subsequently had a CT of the abdomen and pelvis done that showed thickening of the stomach especially within the gastric body and fundus and possibility of peptic ulcer disease/neoplasm could not be excluded. Hence we are consulted in regards to this issue. Also, she was noted to have dilated small bowel loops in the right side of the abdomen. Since being in the hospital, she did not have any further episodes of nausea, abdominal pain, or diarrhea. She is feeling better. On a clear liquid diet, tolerating well. She was diagnosed with non-Hodgkin's lymphoma presenting as small bowel obstruction requiring surgery at the time of diagnosis. She subsequently underwent chemotherapy and since then has been in clinical remission. No prior history of peptic ulcer disease or recent NSAID use. PAST MEDICAL HISTORY: Significant for hypertension, hyperlipidemia, atrial fibrillation on Coumadin, diabetes mellitus, gastroesophageal reflux disease, hypothyroidism, non-Hodgkin's lymphoma diagnosed 15 years ago, breast cancer. PAST SURGICAL HISTORY: Cholecystectomy, back surgery, cardiac catheterization, hysterectomy, small bowel resection, bilateral cataract surgery. MEDICATIONS: At home include Coumadin, albuterol, allopurinol, Flonase, Advair, Atrovent, , Synthroid, Zaroxolyn, Crestor. ALLERGIES: TO CODEINE AND NARCOTICS. SOCIAL HISTORY: No smoking. No alcohol use. FAMILY HISTORY: Unremarkable. REVIEW OF SYSTEMS: Cardiopulmonary: No chest pain, shortness of breath. Genitourinary: No dysuria or hematuria. MUSCULOSKELETAL unremarkable. Skin unremarkable. Endocrine unremarkable. Psychiatric unremarkable. Neurology unremarkable. ENT/vision unremarkable. Constitutional: No recent weight loss. No fever, chills, night sweats. PHYSICAL EXAMINATION: She appears comfortable. No apparent distress. VITAL SIGNS: Stable. Blood pressure is 101/55, pulse rate 86, temperature 98.4. HEENT examination unremarkable. Conjunctivae pink. Sclerae anicteric. Oral cavity no lesions. NECK: No jugular venous distention or lymph node enlargement. CHEST: Clear to auscultation. HEART: Regular rate and rhythm. ABDOMEN: Soft, nontender, nondistended. Bowel sounds are positive. No organomegaly. EXTREMITIES: No pedal edema. SKIN no rashes. NEUROLOGIC: Alert and oriented x3. No focal deficits. LABS: Done at the time of admission to the hospital, WBC 9.6, hemoglobin 12.7, platelets are normal. INR is 3.7. Basic metabolic panel is within normal limits. Stool occult blood was positive. IMPRESSION: 1. Acute onset of lower abdominal pain and diarrhea for the last 4 days duration. She was having about 5-10 loose watery bowel movements daily. Since being in the hospital, no further episodes of diarrhea. She was treated with antibiotics for sinus infection 2 weeks ago. C diff was requested but could not be done as the patient did not have any diarrhea since being in the hospital. 2. Black tarry stools x1 yesterday and stool was Hemoccult positive. CT of the abdomen and pelvis showed thickening in the fundus and gastric body suspicious for neoplasm versus peptic ulcer disease. No recent NSAID use. 3. History of non-Hodgkin's lymphoma 15 years ago in remission. 4. Atrial fibrillation on Coumadin presently on hold. She received vitamin K yesterday in the ER. Repeat INR is pending. RECOMMENDATIONS: 1. Advance diet as tolerated. 2. Continue with Protonix 40 mg daily. 3. Stool studies if she has recurrent diarrhea. 4. Repeat INR in the morning and if it is less than 1.5, we will proceed with an upper endoscopy tomorrow to investigate abnormalities noted on this CT scan and rule out peptic ulcer disease. 5. Plan was discussed with the patient. She is agreeable to it. Thank you for this consultation. MMODL / IJN: [id number] /
[2019-05-01] MEDS ORDERED: IPRATROPIUM-ALBUTEROL 3 ML NEB INHALATION PRN (12:36)
[2019-05-01] MEDS ORDERED: Potassium Replacement Protocol 1 EACH MISC MISCELLANE PRN (12:58)
--- NOTE | 2019-05-01 13:00 | P.HPIM ---
History of Present Illness This is a pleasant 84 years old female with past medical history of atrial fibrillation on Coumadin, COPD, hypothyroidism, intestinal and the breast cancer, irritable bowel syndrome, vertigo, coronary artery disease status post cardiac cath. Presents with melena and GI bleed while she is on Coumadin. Patient tripped yesterday and hurt her left toe which was bleeding without stop and she needed the help from her niece and also she was noticing some light- colored stool for the last 4 days which was concerning for her because other people in her residence with have a stomach flu so she decided to come to the emergency room. She denies abdominal pain or nausea vomiting. She had loose bowel movement for the last 4 days however this resolved and since admission she did not have bowel movement but she is passing gases. No chest pain or dyspnea or dizziness Patient vitals looks stable. Labs showing unremarkable CBC with hemoglobin within normal limits at 12.7. INR is supratherapeutic at 3.7. Sodium 137, potassium is 3, creatinine 1.0, focal occult blood in his stool is positive. EKG showing A. fib with a rate of 82. CAT scan of the abdomen and pelvis: Diffuse thickening of the stomach with possible ulcer. IVC filter is seen. And long segment of colitis, dilatation of the small bowel and anastomosis site con cerning for stricture Patient already got 1 dose of 2.5 mg of vitamin K Review of Systems CONSTITUTIONAL: No fever, no malaise, no fatigue. HEENT: No recent visual problems or hearing problems. Denied any sore throat. CARDIOVASCULAR: No orthopnea, PND, no palpitations, no syncope. PULMONARY: No shortness of breath, no cough, no hemoptysis. GASTROINTESTINAL: No diarrhea, no nausea, no vomiting, no abdominal pain. Normoactive bowel sounds. NEUROLOGICAL: No headaches, no weakness, no numbness. HEMATOLOGICAL: Denies any bleeding or petechiae. GENITOURINARY: Denies any burning micturition, frequency, or urgency. MUSCULOSKELETAL/RHEUMATOLOGICAL: Denies any joint pain, swelling, or any muscle pain. ENDOCRINE: Denies any polyuria or polydipsia. Past Medical History Past Medical History: Atrial Fibrillation, Cancer, COPD, GERD/Reflux, Thyroid Disorder Additional Past Medical History / Comment(s): arthritis, intestional and breast cancer, IBS, BAck pain, PMR, MS, hearing loss right ear, vertigo History of Any Multi-Drug Resistant Organisms: None Reported Past Surgical History: Back Surgery, Cholecystectomy, Heart Catheterization, Hysterectomy Additional Past Surgical History / Comment(s): cataracts Past Psychological History: No Psychological Hx Reported Smoking Status: Former smoker Past Alcohol Use History: Occasional Past Drug Use History: None Reported Medications and Allergies Home Medications Medication Instructions Recorded Confirmed Type Cholecalciferol [Vitamin D3] 5,000 unit PO DAILY 05/28/18 04/30/19 History Cholestyramine (with Sugar) 2 gm PO HS 05/28/18 04/30/19 History [Cholestyramine Packet] Clopidogrel [Plavix] 75 mg PO DAILY 05/28/18 04/30/19 History Furosemide [Lasix] 40 mg PO DAILY 05/28/18 04/30/19 History Metoprolol Tartrate [Lopressor] 25 mg PO BID 05/28/18 04/30/19 History Omeprazole 20 mg PO DAILY 05/28/18 04/30/19 History Warfarin [Coumadin] 2.5 mg PO FR 05/28/18 04/30/19 History Warfarin [Coumadin] 5 mg PO SUMOTUWETHSA 05/28/18 04/30/19 History Allopurinol [Zyloprim] 100 mg PO DAILY 04/17/19 04/30/19 History Fluticasone Nasal [place] [Flonase 2 spr EA NOSTRIL DAILY 04/17/19 04/30/19 History Nasal [place]] Fluticasone/Salmeterol [Advair 1 puff INHALATION RT-BID 04/17/19 04/30/19 History 250-50 Diskus] Ipratropium Nebulized [Atrovent 0.25 mg INHALATION RT-BID PRN 04/17/19 04/30/19 History Nebulized 0.2 MG/ML] Levalbuterol HCl [Xopenex 0.315 mg INHALATION RT-BID PRN 04/17/19 04/30/19 History Nebulized] Levothyroxine Sodium [Synthroid] 100 mcg PO DAILY 04/17/19 04/30/19 History Metolazone [Zaroxolyn] 2.5 mg PO MOWEFR 04/17/19 04/30/19 History Potassium Chloride ER [K-Dur 20] 40 meq PO DAILY 04/17/19 04/30/19 History Rosuvastatin Calcium [Crestor] 5 mg PO HS 04/17/19 04/30/19 History Zinc 50 mg PO DAILY 04/17/19 04/30/19 History Allergies Allergy/AdvReac Type Severity Reaction Status Date / Time codeine Allergy Unknown Verified 04/30/19 18:54 meperidine [From Demerol] Allergy Unknown Verified 04/30/19 18:54 narcotics Allergy Unknown Uncoded 04/30/19 14:59 Physical Exam Vitals: Vital Signs Temp Pulse Pulse Resp BP BP Pulse Ox 05/01/19 07:58 98.0 F 82 16 105/73 97 05/01/19 01:07 98.7 F 78 18 101/70 95 04/30/19 20:22 98.9 F 84 18 102/70 97 04/30/19 19:27 98.4 F 86 16 101/55 98 04/30/19 18:27 86 16 101/55 98 04/30/19 17:15 93 16 122/68 94 L 04/30/19 15:58 103 H 16 110/84 98 04/30/19 14:56 98.4 F 104 H 18 137/92 97 Intake and Output 04/30/19 05/01/19 05/01/19 22:59 06:59 14:59 Intake Total 730 600 Balance 730 600 Intake: Intake, IV Titration 600 Amount Sodium Chloride 0.9% 1, 600 000 ml @ 75 mls/hr IV . [id number] [facility] Rx#:[id number] Oral 730 Other: Voiding Method Toilet # Voids 3 GENERAL: The patient is alert and oriented x3, not in any acute distress. Well developed, well nourished. HEENT: Pupils are round and equally reacting to light. EOMI. No scleral icterus. No conjunctival pallor. Normocephalic, atraumatic. No pharyngeal erythema. No thyromegaly. CARDIOVASCULAR: S1 and S2 present. No murmurs, rubs, or gallops. PULMONARY: Chest is clear to auscultation, no wheezing or crackles. ABDOMEN: Soft, nontender, nondistended, normoactive bowel sounds. No palpable organomegaly. MUSCULOSKELETAL: No joint swelling or deformity. EXTREMITIES: No cyanosis, clubbing, or pedal edema. NEUROLOGICAL: Gross neurological examination did not reveal any focal deficits. SKIN: No rashes. Results CBC & Chem 7: 04/30/19 15:50 04/30/19 15:50 Labs: Abnormal Lab Results - Last 24 Hours (Table) 04/30/19 04/30/19 04/30/19 Range/Units 15:44 15:50 15:50 Lymphocytes # 0.9 L (1.0-4.8) k/uL PT 35.7 H (9.0-12.0) sec INR 3.7 H (<1.2) APTT 36.5 H (22.0-30.0) sec Sodium (137-145) mmol/L Potassium (3.5-5.1) mmol/L Chloride (98-107) mmol/L Carbon Dioxide (22-30) mmol/L BUN (7-17) mg/dL Glucose (74-99) mg/dL Stool Occult Blood Positive H (Negative) 04/30/19 Range/Units 15:50 Lymphocytes # (1.0-4.8) k/uL PT (9.0-12.0) sec INR (<1.2) APTT (22.0-30.0) sec Sodium 136 L (137-145) mmol/L Potassium 3.0 L (3.5-5.1) mmol/L Chloride 94 L (98-107) mmol/L Carbon Dioxide 31 H (22-30) mmol/L BUN 19 H (7-17) mg/dL Glucose 133 H (74-99) mg/dL Stool Occult Blood (Negative) Thrombosis Risk Factor Assmnt - Choose All That Apply Each Risk Factor Represents 3 Points: Age 75 years or older Thrombosis Risk Factor Assessment Total Risk Factor Score: 3 Thrombosis Risk Factor Assessment Level: Moderate Risk Assessment and Plan Assessment: Acute gastrointestinal bleed Thickening of the stomach wall with possible ulcer on CAT scan of the abdomen Possible stricture and the small bowel anastomosis site with possible colitis Coagulopathy secondary to Coumadin Left toe trauma, with bleeding controlled and stopped History of A. fib on Coumadin COPD, not in acute exacerbation Chronic hypothyroidism History of intestinal and breast cancer History of irritable bowel syndrome History of vertigo History of coronary artery disease status post cardiac cath Plan: This is a pleasant 84 years old female who presents with GI bleed while on Coumadin. Keep holding Coumadin. Follow up INR. GI team input is appreciated, plan for EGD. Continue with Protonix twice a day. Continue with IV fluids Labs and medication were reviewed.. Continue same treatment. Continue with s ymptomatic treatment. Resume home medication. Monitor lytes and vitals. DVT and GI prophylaxis. Further recommendations of the clinical course of the patient DVT prophylaxis: No anticoagulation in the review of GI bleed heparin GI Prophylaxis: Protonix Prognosis is guarded
[2019-05-01 14:55] LABS: Basophils % (A) 1 %; Eosinophils # (A) 0.3 k/uL (0-0.7); Eosinophils % (A) 6 %; HCT 35.8 % (34.0-46.0); HGB 11.6 gm/dL (11.4-16.0); Lymphocytes # (A) 0.8 k/uL (1.0-4.8); Lymphocytes % (A) 16 %; MCH 30.3 pg (25.0-35.0); MCHC 32.6 g/dL (31.0-37.0); MCV 92.9 fL (80.0-100.0); Mean Platelet Volume 8.3; Monocytes # (A) 0.4 k/uL (0-1.0); Monocytes % (A) 8 %; Neutrophils # (A) 3.3 k/uL (1.3-7.7); Neutrophils % (A) 67 %; Platelet Count 153 k/uL (150-450); RBC 3.85 m/uL (3.80-5.40); RDW 14.1 % (11.5-15.5); WBC 4.9 k/uL (3.8-10.6)
[2019-05-01 17:20] LABS: African American GFR (CKD) >90 (>60 ml/min/1.73 sqM); Anion Gap 8 mmol/L; Blood Urea Nitrogen 13 mg/dL (7-17); Calcium 8.7 mg/dL (8.4-10.2); Carbon Dioxide 28 mmol/L (22-30); Chloride 100 mmol/L (98-107); Glucose 152 mg/dL (74-99); Potassium 3.1 mmol/L (3.5-5.1); Sodium 136 mmol/L (137-145)
[2019-05-01] MEDS: SYMBICORT 80-4.5 MCG INHALER INHALATION SCH (20:18)
[2019-05-02] MEDS: ZOLPIDEM 5 MG TAB PO PRN (00:20)
[2019-05-02] MEDS: LEVOTHYROXINE 100 MCG TAB PO SCH ×2 (05:25→08:38)
[2019-05-02] MEDS: SODIUM CHLORIDE 0.9% 1,000 ML IV SCH (08:36)
[2019-05-02] MEDS: PANTOPRAZOLE 40 MG/10 ML VIAL IVP SCH (08:37)
[2019-05-02] MEDS: POTASSIUM CHLORIDE ER 20 MEQ TAB.ER PO SCH (08:37)
[2019-05-02] MEDS: METOPROLOL TARTRATE 25 MG TAB PO SCH (08:37)
[2019-05-02] MEDS: FUROSEMIDE 40 MG TAB PO SCH (08:37)
[2019-05-02] MEDS: FLUTICASONE 50MCG/SPRAY NASAL 16GM EA NOSTRIL SCH (08:38)
[2019-05-02] MEDS ORDERED: METOLAZONE 2.5 MG TAB PO SCH (09:00)
[2019-05-02] MEDS: SYMBICORT 80-4.5 MCG INHALER INHALATION SCH (09:08)
[2019-05-02 09:33] LABS: Basophils # (A) 0.1 k/uL (0-0.2); Basophils % (A) 1 %; Eosinophils # (A) 0.3 k/uL (0-0.7); Eosinophils % (A) 6 %; HCT 32.7 % (34.0-46.0); HGB 10.7 gm/dL (11.4-16.0); Lymphocytes % (A) 21 %; MCH 30.5 pg (25.0-35.0); MCHC 32.7 g/dL (31.0-37.0); MCV 93.3 fL (80.0-100.0); Monocytes # (A) 0.4 k/uL (0-1.0); Monocytes % (A) 8 %; Neutrophils % (A) 61 %; Platelet Count 168 k/uL (150-450); RBC 3.51 m/uL (3.80-5.40); WBC 4.8 k/uL (3.8-10.6)
[2019-05-02 09:40] LABS: INR 1.3 (<1.2); Prothrombin Time 13.6 sec (9.0-12.0)
[2019-05-02] MEDS ORDERED: LIDOCAINE 1% INJ 10MG/ML (20 ML MDV) ONE (12:52)
[2019-05-02] MEDS ORDERED: PROPOFOL 10 MG/ML 20 ML VIAL IV ONE (12:52)
[2019-05-02] MEDS ORDERED: IV FLUID CONTINUATION 1,000 ML IV ONE (12:56)
--- NOTE | 2019-05-02 13:05 | P.PCN ---
Date of Procedure: 05/02/19 Procedure(s) Performed: tBRIEF HISTORY: Patient is a 84-year-old, pleasant, white female, scheduled for an upper endoscopy as a part of evaluation of abdominal pain, associated with nausea vomiting and diarrhea. She had CT of the abdomen and pelvis done in the emergency room yesterday which showed thickening of the fundus and body of the stomach and possibility of neoplasm was suggested by the radiologist and hence she is scheduled for an upper endoscopy to evaluate further. PROCEDURE PERFORMED: Esophagogastroduodenoscopy with biopsy. PREOPERATIVE DIAGNOSIS: Abdominal CAT scan abdomen showing thickening of the fundus and body of the stomach. IV sedation per anesthesia. PROCEDURE: After informed consent was obtained, the patient was brought into the endoscopy unit. IV sedation was administered by Anesthesia under continuous monitoring. Initially the Olympus GIF-140 video endoscope was inserted into the mouth. Esophagus intubated without any difficulty. It was gradually advanced into the stomach and duodenum and carefully examined. The bulb and the second part of the duodenum appeared normal. There was a 2 mm polyp in the second part of the duodenum that was also biopsied. The scope at this time was withdrawn to the stomach, adequately insufflated with air, and upon careful examination, mucosa of the antrum, appeared normal. In the body and fundus of the stomach. Several small gastric polyps identified which were biopsied. Rest of the body, cardia and the fundus appeared normal. The scope was then withdrawn into the esophagus. The GE junction was located at 39 cm from the incisors. The esophagus appeared normal. There were no erosions or ulcerations seen and the patient tolerated the procedure well. IMPRESSION: 1. 2 mm duodenal polyp status post biopsy. 2. Several small gastric polyps in the fundus and body the stomach status post biopsy. RECOMMENDATIONS: The findings of this examination were discussed with the patient as well as a family. She was advised to follow up the biopsy results. Diet will be advanced as tolerated and patient can be discharged home today with outpatient follow-up in 2-3 weeks.
[2019-05-02 13:56] VITALS: BP 111/71; PULSE 79; RESP 16; TEMP 97.5
--- NOTE | 2019-05-02 14:02 | P.DS ---
Providers Date of admission: 04/30/19 18:56 Attending physician: Juju Rocha MD Consults: 04/30/19 18:31 Consult Physician Routine Consulting Provider: Blanca Ramsay Consult Reason/Comments: Melena, gastric thickening, possible anastomotic stricture, colitis Do you want consulting provider notified?: Yes Primary care physician: Physician Nonstaff Hospital Course: Diagnoses: Acute gastrointestinal bleed, mostly secondary to her episode of gastroenteritis on the top of her supratherapeutic INR Short episodes of gastroenteritis with diarrhea for 4 days prior to coming to the hospital, resolved Thickening of the stomach wall with possible ulcer on CAT scan of the abdomen Possible stricture and the small bowel anastomosis site with possible colitis Coagulopathy secondary to Coumadin Left toe trauma, with bleeding controlled and stopped. So History of A. fib on Coumadin COPD, not in acute exacerbation Chronic hypothyroidism History of intestinal and breast cancer History of irritable bowel syndrome History of vertigo History of coronary artery disease status post cardiac cath Hospital course: This is a pleasant 84 years old female with past medical history of atrial fibrillation on Coumadin, COPD, hypothyroidism, intestinal and the breast cancer, irritable bowel syndrome, vertigo, coronary artery disease status post cardiac cath. Presents with melena and GI bleed while she is on Coumadin. Also patient has diarrhea for 4 days. Patient tripped yesterday and hurt her left toe which was bleeding without stop and she needed the help from her niece and also she was noticing some black stool for the last 4 days which was concerning for her because other people in her residence with have a stomach flu so she decided to come to the emergency room. On admission her occult blood in stool was positive. Hemoglobin was 12.7, INR was supratherapeutic at 3.7. Patient received 1 dose of vitamin K, CAT scan of the abdomen and pelvis: Diffuse thickening of the stomach with possible ulcer, thickening of the fundus and body of the stomach and possibility of neoplasm was suggested by the radiologist , hence she's been evaluated by GI team and she underwent EGD: 2 mm duodenal polyp and small gastric polyps. Biopsies are still pending and patient is aware instructed to follow up with GI team for the results. Risks including but not limited to cancer are explained to the patient and she verbalized understanding and acceptance She denies abdominal pain or nausea vomiting. She had loose bowel movement for the last 4 days however this resolved and since admission she did not have bowel movement but she is passing gases. Yesterday patient had a small bowel movement. No chest pain or dyspnea or dizziness. Patient was cleared by GI team for discharge and resuming her Coumadin. Patient was instructed to follow up with her PCP as soon as possible to check her INR within 2-3 days Problems and management plan were discussed with the patient and he verbalized understanding and acceptance Patient was found stable and can be discharged home however he needs follow-up as an outpatient. 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 Daughter is at bedside and she took notes of these recommendations Gen: patient is a AAOx3, no distress CVS: S1-S2, RRR, no murmur Lungs: B/L CTA, no wheezing Abdomen: soft, no distention, no tenderness, positive bowel sounds Extremity: no leg edema or induration Time spent more than 35 minutes Patient Condition at Discharge: Fair Plan - Discharge Summary New Discharge Prescriptions: New Pantoprazole Sodium [Protonix] 40 mg PO BID #60 tablet. No Action Warfarin [Coumadin] 5 mg PO SUMOTUWETHSA Warfarin [Coumadin] 2.5 mg PO FR Cholecalciferol [Vitamin D3 (25 Mcg = 1000 Iu)] 5,000 unit PO DAILY Metoprolol Tartrate [Lopressor] 25 mg PO BID Cholestyramine (with Sugar) [Cholestyramine Packet] 2 gm PO HS Omeprazole 20 mg PO DAILY Furosemide [Lasix] 40 mg PO DAILY Clopidogrel [Plavix] 75 mg PO DAILY Allopurinol [Zyloprim] 100 mg PO DAILY Fluticasone Nasal [place] [Flonase Nasal [place]] 2 spr EA NOSTRIL DAILY Fluticasone/Salmeterol [Advair 250-50 Diskus] 1 puff INHALATION RT-BID Ipratropium Nebulized [Atrovent Nebulized 0.2 MG/ML] 0.25 mg INHALATION RT- BID PRN PRN Reason: Shortness Of Breath Levalbuterol HCl [Xopenex Nebulized] 0.315 mg INHALATION RT-BID PRN PRN Reason: Shortness Of Breath Levothyroxine Sodium [Synthroid] 100 mcg PO DAILY Metolazone [Zaroxolyn] 2.5 mg PO MOWEFR Potassium Chloride ER [K-Dur 20] 40 meq PO DAILY Rosuvastatin Calcium [Crestor] 5 mg PO HS Zinc 50 mg PO DAILY Discharge Medication List Cholecalciferol [Vitamin D3 (25 Mcg = 1000 Iu)] 5,000 unit PO DAILY 05/28/18 [History] Cholestyramine (with Sugar) [Cholestyramine Packet] 2 gm PO HS 05/28/18 [History] Clopidogrel [Plavix] 75 mg PO DAILY 05/28/18 [History] Furosemide [Lasix] 40 mg PO DAILY 05/28/18 [History] Metoprolol Tartrate [Lopressor] 25 mg PO BID 05/28/18 [History] Omeprazole 20 mg PO DAILY 05/28/18 [History] Warfarin [Coumadin] 2.5 mg PO FR 05/28/18 [History] Warfarin [Coumadin] 5 mg PO SUMOTUWETHSA 05/28/18 [History] Allopurinol [Zyloprim] 100 mg PO DAILY 04/17/19 [History] Fluticasone Nasal [place] [Flonase Nasal [place]] 2 spr EA NOSTRIL DAILY 04/17/19 [History] Fluticasone/Salmeterol [Advair 250-50 Diskus] 1 puff INHALATION RT-BID 04/17/19 [History] Ipratropium Nebulized [Atrovent Nebulized 0.2 MG/ML] 0.25 mg INHALATION RT-BID PRN 04/17/19 [History] Levalbuterol HCl [Xopenex Nebulized] 0.315 mg INHALATION RT-BID PRN 04/17/19 [History] Levothyroxine Sodium [Synthroid] 100 mcg PO DAILY 04/17/19 [History] Metolazone [Zaroxolyn] 2.5 mg PO MOWEFR 04/17/19 [History] Potassium Chloride ER [K-Dur 20] 40 meq PO DAILY 04/17/19 [History] Rosuvastatin Calcium [Crestor] 5 mg PO HS 04/17/19 [History] Zinc 50 mg PO DAILY 04/17/19 [History] Pantoprazole Sodium [Protonix] 40 mg PO BID #60 tablet. 05/02/19 [Rx] Follow up Appointment(s)/Referral(s): Blanca Ramsay MD [STAFF PHYSICIAN] - 2 Weeks Nonstaff,Physician [Primary Care Provider] - 1-2 days
[2019-05-02] MEDS ORDERED: PANTOPRAZOLE 40 MG TABLET PO SCH (21:00)
== END 2019-05-02 15:26 | disposition home or self-care (01) ==
LOC: EC 14:52 → 4SSUR 18:56
PROVIDERS: ADMIT Internal Medicine; ATTEND Internal Medicine
DX: K52.9 Noninfective gastroenteritis and colitis, unspecified (principal); C85.93 Non-Hodgkin lymphoma, unspecified, intra-abdominal lymph nodes; E03.9 Hypothyroidism, unspecified; E11.9 Type 2 diabetes mellitus without complications; E78.5 Hyperlipidemia, unspecified; R42 Dizziness and giddiness; H91.91 Unspecified hearing loss, right ear; I10 Essential (primary) hypertension; I25.10 Atherosclerotic heart disease of native coronary artery without angina pectoris; I48.91 Unspecified atrial fibrillation; J44.9 Chronic obstructive pulmonary disease, unspecified; K21.9 Gastro-esophageal reflux disease without esophagitis; K31.7 Polyp of stomach and duodenum; Z85.3 Personal history of malignant neoplasm of breast; R79.1 Abnormal coagulation profile; Z79.01 Long term (current) use of anticoagulants; Z79.02 Long term (current) use of antithrombotics/antiplatelets; Z79.890 Hormone replacement therapy; Z79.899 Other long term (current) drug therapy; Z85.850 Personal history of malignant neoplasm of thyroid; Z87.891 Personal history of nicotine dependence; Z90.710 Acquired absence of both cervix and uterus; Z79.51 Long term (current) use of inhaled steroids; Z90.49 Acquired absence of other specified parts of digestive tract; Z98.42 Cataract extraction status, left eye; Z98.41 Cataract extraction status, right eye; Z88.5 Allergy status to narcotic agent
CPT/HCPCS: 96376; 96361 ×2; 96366; 96365; 96375; 99285; 36415; 94640; 93005; 86900; 86901; 88305; 80053; 80048; 83735 ×2; 84132 ×2; 85025 ×3; 85610 ×2; 85730; 86850; 82272; 74177; 43239; G0378 ×3; J2001; J3480; J2704; C9113 ×3; Q9967

== ENCOUNTER → 2020-05-03 | Outpatient (CLI) | payer MEDICARE ==
--- NOTE | 2020-05-03 10:46 | CT ---
EXAMINATION TYPE: CT angio head neck DATE OF EXAM: 05/03/2020 COMPARISON: None HISTORY: Dizziness. CT DLP: 248.2 mGycm CONTRAST: Performed with IV Contrast, patient injected with 65 mL of Isovue 370. Combination Contrast CTA cervical carotids and [place] CTA cervical carotids with 3-D recons truction Contrast CTA of the cervical carotids was performed 3-D reconstruction imaging obtained at a separate workstation. Right carotid system: Mild plaque is seen of the right common carotid artery. There is mild plaque a lso noted at the carotid bulb and proximal ICA. No significant diameter reduction. ECA is patent. Right vertebral artery appears unremarkable. Left carotid system: Mild plaque is seen of the left common carotid artery. There is mild plaque als o noted at the carotid bulb and proximal ICA. No significant diameter reduction. ECA is patent. Lef t vertebral artery appears unremarkable. IMPRESSION: 1. No significant diameter reduction to account for the patient's symptoms. CTA [place] with 3-D reconstruction Contrast CTA of the [place] was performed 3-D reconstruction imaging obtained at a separate workstation. Vertebrobasilar system as well as intracranial portions of the internal carotid arteries and their ma g[place] tributaries are patent. Atheromatous changes noted. I do not see evidence for sizable aneurysm o r vascular malformation. Please note MRI provides greater sensitivity and specificity. Visualized b rain appears grossly unremarkable. IMPRESSION: 1. No significant abnormality.
--- NOTE | 2020-05-03 11:07 | CT ---
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 FINDINGS: The external auditory canals are patent bilaterally. Mastoid air cells show no evidence of abnormal opacification bilaterally. The middle ear ossicles are symmetric and unremarkable. There is no evidence of suspicious surrounding soft tissue density to suggest cholesteatoma. The scutum is preserved bilaterally. The cochlea and the semicircular canals are symmetric and unremarkable. Ves tibular aqueduct and internal carotid canal appear unremarkable. Temporomandibular joints are mainta ined bilaterally. IMPRESSION: No significant abnormality seen to account for patient's symptoms. Please note the lack o f contrast limits evaluation.
== END | disposition home or self-care (01) ==
LOC: RADCTMAIN 08:15
DX: H83.11 Labyrinthine fistula, right ear (principal); I10 Essential (primary) hypertension; D35.6 Benign neoplasm of aortic body and other paraganglia; R42 Dizziness and giddiness
CPT/HCPCS: 82565; 84520; 70496; 70480; 70498; 36415; Q9967

== ENCOUNTER 2020-05-20 13:00 | Emergency (ER) | payer MEDICARE ==
[2020-05-20 13:14] VITALS: RESP 18; TEMP 97.7
[2020-05-20] MEDS ORDERED: SODIUM CHLORIDE 0.9% 500 ML 500 ML IV STA (13:45)
[2020-05-20 13:55] LABS: Basophils % (A) 1 %; Eosinophils # (A) 0.2 k/uL (0-0.7); Eosinophils % (A) 2 %; HCT 38.5 % (34.0-46.0); HGB 12.5 gm/dL (11.4-16.0); Lymphocytes # (A) 0.8 k/uL (1.0-4.8); Lymphocytes % (A) 10 %; MCH 30.6 pg (25.0-35.0); MCHC 32.4 g/dL (31.0-37.0); MCV 94.5 fL (80.0-100.0); Mean Platelet Volume 9.5; Monocytes # (A) 0.6 k/uL (0-1.0); Monocytes % (A) 8 %; Neutrophils # (A) 5.9 k/uL (1.3-7.7); Neutrophils % (A) 77 %; Platelet Count 171 k/uL (150-450); RBC 4.07 m/uL (3.80-5.40); RDW 13.8 % (11.5-15.5); WBC 7.6 k/uL (3.8-10.6)
--- NOTE | 2020-05-20 14:09 | ED ---
Nausea/Vomiting/Diarrhea HPI - General Chief complaint: Nausea/Vomiting/Diarrhea Stated complaint: nausea Time Seen by Provider: 05/20/20 13:06 Source: patient, EMS Mode of arrival: EMS Limitations: no limitations - History of Present Illness Initial comments: Patient is an 85-year-old female, with history of cancer, blood clots, A. fib currently on Coumadin and Plavix, vertigo, presenting to the emergency department via EMS with complaints of nausea for 2 days. Patient states she has not been able to take her medicine secondary to nausea. She's had no actual vomiting. She states yesterday she was very nauseous, started sweating. She denies pain anywhere including no chest pain or shortness of breath. No abdominal pain or diarrhea. She denies any urinary complaints. She denies any fever or chills. She states she is on Coumadin and Plavix but has not taken any medicines since yesterday morning. She states she is currently taking tramadol for chronic low back pain. She did take that medicine today. Patient was given 4 mg of Zofran and the EMS prior to arrival. She states her nausea is minimal now. She has no further complaints at this time. Upon arrival to the ER, her vital signs are stable. - Related Data Home Medications Medication Instructions Recorded Confirmed Advair (Unknown Dose) 1 puff INHALATION RT-DAILY 05/20/20 05/20/20 Allopurinol [Zyloprim] 100 mg PO DAILY 05/20/20 05/20/20 Cholecalciferol [Vitamin D3 (25 5,000 unit PO DAILY 05/20/20 05/20/20 Mcg = 1000 Iu)] Cholestyramine (with Sugar) 2 gm PO HS 05/20/20 05/20/20 [Cholestyramine Packet] Clopidogrel Bisulfate [Plavix] 75 mg PO DAILY 05/20/20 05/20/20 Fluticasone Nasal [place] [Flonase 2 spr EA NOSTRIL DAILY 05/20/20 05/20/20 Nasal [place]] Furosemide [Lasix] 20 mg PO DAILY 05/20/20 05/20/20 Ipratropium Nebulized [Atrovent 0.5 mg INHALATION RT-Q8H PRN 05/20/20 05/20/20 Nebulized 0.2 MG/ML] Levalbuterol HCl 0.63 mg INHALATION RT-BID 05/20/20 05/20/20 Levothyroxine Sodium [Synthroid] 100 mcg PO DAILY 05/20/20 05/20/20 Meclizine (Unknown Dose) 1 tab PO DAILY PRN 05/20/20 05/20/20 Metolazone [Zaroxolyn] 2.5 mg PO MOWEFR 05/20/20 05/20/20 Omeprazole 20 mg PO DAILY 05/20/20 05/20/20 Potassium Chloride ER [K-Dur 20] 20 meq PO BID 05/20/20 05/20/20 Rosuvastatin Calcium [Crestor] 5 mg PO HS 05/20/20 05/20/20 Spironolactone [Aldactone] 25 mg PO DAILY 05/20/20 05/20/20 Warfarin Sodium [Coumadin] 2.5 mg PO FR 05/20/20 05/20/20 Warfarin Sodium [Coumadin] 5 mg PO SUMOTUWETHSA 05/20/20 05/20/20 Zinc 50 mg PO HS 05/20/20 05/20/20 Allergies Allergy/AdvReac Type Severity Reaction Status Date / Time Opioids - Morphine Analogues Allergy Swelling Verified 05/20/20 14:39 Review of Systems ROS Statement: Those systems with pertinent positive or pertinent negative responses have been documented in the HPI. ROS Other: All systems not noted in ROS Statement are negative. Past Medical History Past Medical History: Atrial Fibrillation, Hearing Disorder / Deafness, Thyroid Disorder Additional Past Medical History / Comment(s): Right ear. History of Any Multi-Drug Resistant Organisms: None Reported Smoking Status: Never smoker Past Alcohol Use History: Occasional Past Drug Use History: None Reported General Exam - General Exam Comments Initial Comments: GENERAL: Patient is well-developed and well-nourished. Patient is nontoxic and in no acute distress. HEAD: Atraumatic, normocephalic. EYES: Pupils equal round and reactive to light, extraocular movements intact, sclera anicteric, conjunctiva are normal. Eyelids were unremarkable. ENT: TMs normal, nares patent, oropharynx clear without exudates. Moist mucous membranes. NECK: Normal range of motion, supple without lymphadenopathy or JVD. LUNGS: Unlabored respirations. Breath sounds clear to auscultation bilaterally and equal. No wheezes rales or rhonchi. HEART: Regular rate and rhythm without murmurs, rubs or gallops. ABDOMEN: Soft, nontender, normoactive bowel sounds. No guarding, no rebound. No masses appreciated. : Deferred MUSCULOSKELETAL: Normal extremities wwith adequate strength and normal range of motion, no pitting or edema. No clubbing or cyanosis. NEUROLOGICAL: Patient is alert and oriented x 3. Motor and sensory are also intact. Cranial nerves II through XII grossly intact. Normal speech, normal gait. Symmetrical smile. PSYCH: Normal mood, normal affect. SKIN: Warm, Dry, normal turgor, no rashes or lesions noted. Limitations: no limitations Course Vital Signs 05/20/20 05/20/20 05/20/20 13:09 13:14 14:14 Temperature 97.7 F Pulse Rate 80 77 Respiratory 18 18 18 Rate Blood Pressure 150/98 127/71 O2 Sat by Pulse 98 98 Oximetry 05/20/20 05/20/20 15:00 15:59 Temperature Pulse Rate 77 67 Respiratory 18 18 Rate Blood Pressure 127/71 121/75 O2 Sat by Pulse 98 98 Oximetry Medical Decision Making - Medical Decision Making Patient is an 85-year-old female, with multiple co-morbidities presenting for nausea 2 days. Her vitals are stable upon arrival. Her exam is unremarkable, no abdominal tenderness. EKG shows A. fib, no acute process. Lab work shows some mild dehydration, INR is elevated at 3.9. Lactic acid is normal, urine shows no evidence of infection. Patient was given some fluids and has been stab le in the ER. She has not needed any more nausea medicines. Patient's vital signs remained stable during stay. I discussed these findings with the patient. I recommended skipping today's dose of Coumadin and to call her doctor in the morning. Patient is stable for discharge. I will discharge her home with some Zofran for additional nausea as needed. She is in agreement with this plan of care. Return parameters were discussed with the patient she verbalized understanding. Case discussed with Dr. Tello. - Lab Data Result diagrams: 05/20/20 13:48 05/20/20 14:05 Lab Results 05/20/20 05/20/20 05/20/20 Range/Units 13:48 13:48 13:48 WBC 7.6 (3.8-10.6) k/uL RBC 4.07 (3.80-5.40) m/uL Hgb 12.5 (11.4-16.0) gm/dL Hct 38.5 (34.0-46.0) % MCV 94.5 (80.0-100.0) fL MCH 30.6 (25.0-35.0) pg MCHC 32.4 (31.0-37.0) g/dL RDW 13.8 (11.5-15.5) % Plt Count 171 (150-450) k/uL Neutrophils % 77 % Lymphocytes % 10 % Monocytes % 8 % Eosinophils % 2 % Basophils % 1 % Neutrophils # 5.9 (1.3-7.7) k/uL Lymphocytes # 0.8 L (1.0-4.8) k/uL Monocytes # 0.6 (0-1.0) k/uL Eosinophils # 0.2 (0-0.7) k/uL Basophils # 0.0 (0-0.2) k/uL PT 38.8 H (9.0-12.0) sec INR 3.9 H (<1.2) APTT 30.0 (22.0-30.0) sec Sodium (137-145) mmol/L Potassium (3.5-5.1) mmol/L Chloride (98-107) mmol/L Carbon Dioxide (22-30) mmol/L Anion Gap mmol/L BUN (7-17) mg/dL Creatinine (0.52-1.04) mg/dL Est GFR (CKD-EPI)AfAm (>60 ml/min/1.73 sqM) Est GFR (CKD-EPI)NonAf (>60 ml/min/1.73 sqM) Glucose (74-99) mg/dL Plasma Lactic Acid Saji 1.3 (0.7-2.0) mmol/L Calcium (8.4-10.2) mg/dL Magnesium (1.6-2.3) mg/dL Total Bilirubin (0.2-1.3) mg/dL AST (14-36) U/L ALT (4-34) U/L Alkaline Phosphatase (38-126) U/L Total Protein (6.3-8.2) g/dL Albumin (3.5-5.0) g/dL TSH (0.465-4.680) mIU/L Free T4 (0.78-2.19) ng/dL Urine Color Urine Appearance (Clear) Urine pH (5.0-8.0) Ur Specific [place] (1.001-1.035) Urine Protein (Negative) Urine Glucose (UA) (Negative) Urine Ketones (Negative) Urine Blood (Negative) Urine Nitrite (Negative) Urine Bilirubin (Negative) Urine Urobilinogen (<2.0) mg/dL Ur Leukocyte Esterase (Negative) Urine RBC (0-5) /hpf Urine WBC (0-5) /hpf Ur Squamous Epith Cells (0-4) /hpf Urine Mucus (None) /hpf 05/20/20 05/20/20 Range/Units 14:05 14:59 WBC (3.8-10.6) k/uL RBC (3.80-5.40) m/uL Hgb (11.4-16.0) gm/dL Hct (34.0-46.0) % MCV (80.0-100.0) fL MCH (25.0-35.0) pg MCHC (31.0-37.0) g/dL RDW (11.5-15.5) % Plt Count (150-450) k/uL Neutrophils % % Lymphocytes % % Monocytes % % Eosinophils % % Basophils % % Neutrophils # (1.3-7.7) k/uL Lymphocytes # (1.0-4.8) k/uL Monocytes # (0-1.0) k/uL Eosinophils # (0-0.7) k/uL Basophils # (0-0.2) k/uL PT (9.0-12.0) sec INR (<1.2) APTT (22.0-30.0) sec Sodium 131 L (137-145) mmol/L Potassium 3.3 L (3.5-5.1) mmol/L Chloride 95 L (98-107) mmol/L Carbon Dioxide 28 (22-30) mmol/L Anion Gap 8 mmol/L BUN 39 H (7-17) mg/dL Creatinine 0.76 (0.52-1.04) mg/dL Est GFR (CKD-EPI)AfAm 84 (>60 ml/min/1.73 sqM) Est GFR (CKD-EPI)NonAf 73 (>60 ml/min/1.73 sqM) Glucose 101 H (74-99) mg/dL Plasma Lactic Acid Saji (0.7-2.0) mmol/L Calcium 9.2 (8.4-10.2) mg/dL Magnesium 1.7 (1.6-2.3) mg/dL Total Bilirubin 0.5 (0.2-1.3) mg/dL AST 29 (14-36) U/L ALT 16 (4-34) U/L Alkaline Phosphatase 76 (38-126) U/L Total Protein 5.9 L (6.3-8.2) g/dL Albumin 3.6 (3.5-5.0) g/dL TSH 0.379 L (0.465-4.680) mIU/L Free T4 1.66 (0.78-2.19) ng/dL Urine Color Light Yellow Urine Appearance Clear (Clear) Urine pH 6.5 (5.0-8.0) Ur Specific [place] 1.016 (1.001-1.035) Urine Protein Negative (Negative) Urine Glucose (UA) Negative (Negative) Urine Ketones Negative (Negative) Urine Blood Negative (Negative) Urine Nitrite Negative (Negative) Urine Bilirubin Negative (Negative) Urine Urobilinogen <2.0 (<2.0) mg/dL Ur Leukocyte Esterase Moderate H (Negative) Urine RBC 1 (0-5) /hpf Urine WBC 5 (0-5) /hpf Ur Squamous Epith Cells <1 (0-4) /hpf Urine Mucus Rare H (None) /hpf - EKG Data EKG Comments: EKG reads A. fib, no signs of acute process. Ventricular rate 72, QRS duration 74, QT 400. Disposition Clinical Impression: Nausea, Dehydration, Elevated INR Disposition: HOME SELF-CARE Condition: Stable Instructions (If sedation given, give patient instructions): Acute Nausea and Vomiting (ED) Additional Instructions: Please return to the Emergency Department if symptoms worsen or any other concerns. Take Zofran as needed for additional nausea. Follow-up with primary care doctor tomorrow. Is patient prescribed a controlled substance at d/c from ED?: No Referrals: None,Stated [Primary Care Provider] - 1-2 days
[2020-05-20 14:23] LABS: INR 3.9 (<1.2); Prothrombin Time 38.8 sec (9.0-12.0)
[2020-05-20 14:28] LABS: Albumin 3.6 g/dL (3.5-5.0); Calcium 9.2 mg/dL (8.4-10.2); Magnesium 1.7 mg/dL (1.6-2.3); Potassium 3.3 mmol/L (3.5-5.1); Total Bilirubin 0.5 mg/dL (0.2-1.3); Total Protein 5.9 g/dL (6.3-8.2)
[2020-05-20 15:14] LABS: Appearance,Urine Clear (Clear); Bilirubin,Urine Negative (Negative); Blood,Urine Negative (Negative); Color,Urine Light Yellow; Glucose,Urine (UA) Negative (Negative); Ketones,Urine Negative (Negative); Leukocyte Esterase,Urine Moderate (Negative); Mucus,Urine Rare /hpf; Nitrite,Urine Negative (Negative); PH, Urine 6.5 (5.0-8.0); Protein,Urine Negative (Negative); RBC,Urine 1 /hpf (0-5); Specific Gravity,Urine 1.016 (1.001-1.035); Squamous Epithelial Cell,Urine <1 /hpf (0-4); Urobilinogen,Urine <2.0 mg/dL (<2.0); WBC,Urine 5 /hpf (0-5)
[2020-05-20 15:25] LABS: T4, Free (Free Thyroxine) 1.66 ng/dL (0.78-2.19)
[2020-05-20] MEDS ORDERED: ONDANSETRON 4 MG ODT STARTER PACK 2 TAB BTL PO STA (15:42)
[2020-05-20 16:00] VITALS: BP 121/75; PULSE 67
== END 2020-05-20 16:05 | disposition home or self-care (01) ==
LOC: EC 13:00 → MERGE 13:00 → EC 16:05
DX: R11.0 Nausea (principal); E86.0 Dehydration; E07.9 Disorder of thyroid, unspecified; R79.1 Abnormal coagulation profile; I48.91 Unspecified atrial fibrillation; H91.91 Unspecified hearing loss, right ear; Z79.51 Long term (current) use of inhaled steroids; Z79.890 Hormone replacement therapy; Z79.899 Other long term (current) drug therapy; Z79.01 Long term (current) use of anticoagulants; Z88.5 Allergy status to narcotic agent; Z85.9 Personal history of malignant neoplasm, unspecified
CPT/HCPCS: 36415; 93005; 84439; 80053; 84443; 83605; 83735; 85025; 85610; 85730; 81001; 99284; 96360; S0119

== ENCOUNTER 2021-03-23 16:27 | Emergency (ER) | payer MEDICARE ==
[2021-03-23 16:34] VITALS: RESP 16
--- NOTE | 2021-03-23 16:40 | ED ---
General Adult HPI - General Chief complaint: Fall Stated complaint: fall/shoulder injury Time Seen by Provider: 03/23/21 16:38 Source: patient, EMS Mode of arrival: EMS Limitations: no limitations - History of Present Illness Initial comments: Patient presents to the ED by ambulance for evaluation status post fall. Patient states that she accidentally tripped and fell onto the right side of her back while at her residence this afternoon. Patient states that she hit the back of her head on the ground, but she denies LOC. Patient states that she had her right shoulder pain since falling, particularly with any attempted movement of her right arm. Patient denies any other site of pain. Patient denies headache, focal numbness/weakness/neuro deficit, visual changes, neck/back/lower extremity pain, chest pain, dyspnea, dizziness, abdominal pain, nausea or vomiting, or any other symptoms or complaints. Patient reports being on Eliquis anticoagulation therapy. - Related Data Home Medications Medication Instructions Recorded Confirmed Cholecalciferol [Vitamin D3 (25 5,000 unit PO DAILY 05/28/18 04/30/19 Mcg = 1000 Iu)] Cholestyramine (with Sugar) 2 gm PO HS 05/28/18 04/30/19 [Cholestyramine Packet] Clopidogrel [Plavix] 75 mg PO DAILY 05/28/18 04/30/19 Furosemide [Lasix] 40 mg PO DAILY 05/28/18 04/30/19 Metoprolol Tartrate [Lopressor] 25 mg PO BID 05/28/18 04/30/19 Warfarin [Coumadin] 2.5 mg PO FR 05/28/18 04/30/19 Warfarin [Coumadin] 5 mg PO SUMOTUWETHSA 05/28/18 04/30/19 Fluticasone Nasal [place] [Flonase 2 spr EA NOSTRIL DAILY 04/17/19 04/30/19 Nasal [place]] Fluticasone/Salmeterol [Advair 1 puff INHALATION RT-BID 04/17/19 04/30/19 250-50 Diskus] Ipratropium Nebulized [Atrovent 0.25 mg INHALATION RT-BID PRN 04/17/19 04/30/19 Nebulized 0.2 MG/ML] Levalbuterol HCl [Xopenex 0.315 mg INHALATION RT-BID PRN 04/17/19 04/30/19 Nebulized] Levothyroxine Sodium [Synthroid] 100 mcg PO DAILY 04/17/19 04/30/19 Potassium Chloride ER [K-Dur 20] 40 meq PO DAILY 04/17/19 04/30/19 Rosuvastatin Calcium [Crestor] 5 mg PO HS 04/17/19 04/30/19 Zinc 50 mg PO DAILY 04/17/19 04/30/19 allopurinoL [Zyloprim] 100 mg PO DAILY 04/17/19 04/30/19 metOLazone [Zaroxolyn] 2.5 mg PO MOWEFR 04/17/19 04/30/19 Advair (Unknown Dose) 1 puff INHALATION RT-DAILY 05/20/20 05/20/20 Cholecalciferol [Vitamin D3 (25 5,000 unit PO DAILY 05/20/20 05/20/20 Mcg = 1000 Iu)] Cholestyramine (with Sugar) 2 gm PO HS 05/20/20 05/20/20 [Cholestyramine Packet] Clopidogrel Bisulfate [Plavix] 75 mg PO DAILY 05/20/20 05/20/20 Fluticasone Nasal [place] [Flonase 2 spr EA NOSTRIL DAILY 05/20/20 05/20/20 Nasal [place]] Furosemide [Lasix] 20 mg PO DAILY 05/20/20 05/20/20 Ipratropium Nebulized [Atrovent 0.5 mg INHALATION RT-Q8H PRN 05/20/20 05/20/20 Nebulized 0.2 MG/ML] Levothyroxine Sodium [Synthroid] 100 mcg PO DAILY 05/20/20 05/20/20 Meclizine (Unknown Dose) 1 tab PO DAILY PRN 05/20/20 05/20/20 Omeprazole 20 mg PO DAILY 05/20/20 05/20/20 Potassium Chloride ER [K-Dur 20] 20 meq PO BID 05/20/20 05/20/20 Rosuvastatin Calcium [Crestor] 5 mg PO HS 05/20/20 05/20/20 Spironolactone [Aldactone] 25 mg PO DAILY 05/20/20 05/20/20 Warfarin Sodium [Coumadin] 2.5 mg PO FR 05/20/20 05/20/20 Warfarin Sodium [Coumadin] 5 mg PO SUMOTUWETHSA 05/20/20 05/20/20 Zinc 50 mg PO HS 05/20/20 05/20/20 allopurinoL [Zyloprim] 100 mg PO DAILY 05/20/20 05/20/20 levalbuterol HCL [Levalbuterol HCl] 0.63 mg INHALATION RT-BID 05/20/20 05/20/20 metOLazone [Zaroxolyn] 2.5 mg PO MOWEFR 05/20/20 05/20/20 Previous Rx's Medication Instructions Recorded Omeprazole 40 mg PO DAILY #0 05/02/19 Pantoprazole Sodium [Protonix] 40 mg PO BID #60 tablet. 05/02/19 Allergies Allergy/AdvReac Type Severity Reaction Status Date / Time codeine Allergy Unknown Verified 03/23/21 16:35 meperidine [From Demerol] Allergy Unknown Verified 03/23/21 16:35 Opioids - Morphine Analogues Allergy Swelling Verified 03/23/21 16:35 narcotics Allergy Unknown Uncoded 03/23/21 16:35 Review of Systems ROS Statement: Those systems with pertinent positive or pertinent negative responses have been documented in the HPI. ROS Other: All systems not noted in ROS Statement are negative. Past Medical History Past Medical History: Atrial Fibrillation, Cancer, COPD, GERD/Reflux, Hearing Disorder / Deafness, Thyroid Disorder Additional Past Medical History / Comment(s): Right ear. History of Any Multi-Drug Resistant Organisms: None Reported Past Surgical History: Back Surgery, Cholecystectomy, Heart Catheterization, Hysterectomy Additional Past Surgical History / Comment(s): cataracts Past Psychological History: No Psychological Hx Reported Smoking Status: Never smoker Past Alcohol Use History: Occasional Past Drug Use History: None Reported General Exam Limitations: no limitations General appearance: alert, in no apparent distress Head exam: Present: atraumatic, normocephalic Eye exam: Present: normal appearance, PERRL, EOMI ENT exam: Present: mucous membranes moist, TM's normal bilaterally Neck exam: Present: normal inspection, full ROM, other (Trachea is in midline). Absent: tenderness Respiratory exam: Present: normal lung sounds bilaterally. Absent: respiratory distress, wheezes, rales, rhonchi, stridor Cardiovascular Exam: Present: regular rate, normal rhythm, normal heart sounds, other (Normal radial pulses bilaterally) GI/Abdominal exam: Present: soft. Absent: distended, tenderness, guarding Extremities exam: Present: other (Limited range of motion at right shoulder; right lateral shoulder tenderness; no tenderness is noted over right AC joint or clavicle; pelvis is stable and nontender; patient has full range of motion at bilateral hips without any difficulty or discomfort) Back exam: Present: normal inspection. Absent: tenderness Neurological exam: Present: alert, oriented X3, CN II-XII intact. Absent: motor sensory deficit Psychiatric exam: Present: normal affect, normal mood Skin exam: Present: warm, dry, intact, normal color Course Vital Signs 03/23/21 16:30 Temperature 98.6 F Pulse Rate 72 Respiratory 16 Rate Blood Pressure 139/71 O2 Sat by Pulse 98 Oximetry - Reevaluation(s) Reevaluation #1: 03/23/21 18:50 Patient denies development of any new pain or symptoms while in the ED. Patient and son are aware of the patient's imaging reports, and patient feels comfortable going home with her son at this time. Patient was counseled about shoulder/rotator cuff injuries and head injuries. Patient was clearly explained return and follow-up instructions. Patient was instructed to follow up closely with her primary care provider. Patient was instructed to have a low threshold for return to the emergency department should her symptoms worsen. Patient feels comfortable with this plan. Medical Decision Making - Medical Decision Making Patient's head CT and right shoulder x-rays are negative. Patient's pain is localized to her right lateral shoulder, and she has no distal right upper extremity pain or tenderness. I suspect that the patient may have sustained a right rotator cuff injury. Patient was placed in a right arm sling in the emergency department. Will discharge patient home with her son at this time with instructions for close outpatient follow-up with orthopedic surgery. Patient states that she cannot take narcotic pain medication, and she states that she will take ibuprofen and/or Tylenol for her pain. - Radiology Data Radiology results: report reviewed (Noncontrast head CT: No acute intracranial abnormality; right shoulder x-rays: No acute osseous abnormality, high riding humeral head can be seen with rotator cuff pathology) Disposition Clinical Impression: Fall, Right shoulder injury Disposition: HOME SELF-CARE Condition: Stable Instructions (If sedation given, give patient instructions): Fall Prevention (ED), Head Injury (ED), Rotator Cuff Injury (ED) Additional Instructions: Return to the ER immediately should you develop new or worsening pain or symptoms. Follow up closely with your primary care provider, as well as orthopedic surgery. Is patient prescribed a controlled substance at d/c from ED?: No Referrals: Dejuan Dubois DO [Primary Care Provider] - 1-2 days Negro Quiles DO [Doctor of Osteopathic Medicine] - 1-2 days Time of Disposition: 18:54
--- NOTE | 2021-03-23 17:29 | CT ---
EXAM: CT brain wo con CLINICAL HISTORY: Pain/injury status post fall. COMPARISON: 04/17/2019. TECHNIQUE: Contiguous axial noncontrast images of the brain were obtained. Coronal and sagittal refor mats were generated and reviewed. Automated dose control was used for this exam. FINDINGS: There is no evidence for intracranial hemorrhage, mass effect or midline shift. The white matter is g rossly preserved. Ventricular size and configuration is within normal limits for degree of parenchymal volume. The paranasal sinuses are clear. The mastoid air cells are clear. No evidence for calvarial fracture. IMPRESSION: No acute intracranial abnormality.
--- NOTE | 2021-03-23 18:06 | XR ---
Result: Clinical History: Pain. Comparison: None available. Technique: 3 views of the right shoulder. Findings: The bone mineralization is appropriate for age. No acute fracture or dislocation is seen. 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 The humeral head is high riding. Impression: No acute osseous abnormality. High riding humeral head, can be seen with rotator cuff pathology.
[2021-03-23] MEDS ORDERED: ACETAMINOPHEN TAB 500 MG TAB PO STA (19:07)
[2021-03-23 19:16] VITALS: BP 128/78; PULSE 78; TEMP 98
== END 2021-03-23 19:12 | disposition home or self-care (01) ==
LOC: EC 16:27
DX: S49.91XA Unspecified injury of right shoulder and upper arm, initial encounter (principal); I48.91 Unspecified atrial fibrillation; J44.9 Chronic obstructive pulmonary disease, unspecified; K21.9 Gastro-esophageal reflux disease without esophagitis; H91.90 Unspecified hearing loss, unspecified ear; Z79.01 Long term (current) use of anticoagulants; Z79.02 Long term (current) use of antithrombotics/antiplatelets; Z79.51 Long term (current) use of inhaled steroids; Z79.899 Other long term (current) drug therapy; Z88.5 Allergy status to narcotic agent; W01.0XXA Fall on same level from slipping, tripping and stumbling without subsequent striking against object, initial encounter
CPT/HCPCS: 70450; 99284

== ENCOUNTER 2022-07-03 16:40 | Emergency (ER) | payer MEDICARE ==
[2022-07-03 16:55] VITALS: RESP 18; TEMP 98.2
[2022-07-03] MEDS ORDERED: DIPH,PERTUS(ACELL)TETVAC-LF 0.5 ML VIAL IM ONE (19:25)
[2022-07-03] MEDS ORDERED: GELATIN SPONGE,ABSORB (LARGE) 1 EACH SPONGE TOPICAL STA (19:25)
[2022-07-03] MEDS ORDERED: TRANEXAMIC ACID IN NACL,ISO-OS 1,000 MG in SALINE 1 100ML.BAG IVPB ONE (21:05)
[2022-07-03] MEDS ORDERED: LIDOCAINE/EPINEPHR/TETRACAINE 5 ML BOTTLE TOPICAL ONE (22:28)
--- NOTE | 2022-07-03 23:13 | ED ---
Wound/Laceration HPI - General Chief Complaint: Wound/Laceration Stated Complaint: right leg injury, blood thinners Time Seen by Provider: 07/03/22 19:05 Source: patient Mode of arrival: wheelchair - History of Present Illness Initial Comments: Patient is a 87-year-old female presenting with chief complaint of bleeding abrasion to the right lower leg. Patient had her leg, car door today. They tried applying pressure at home of bleeding has not stopped. Patient is currently on Plavix and baby aspirin, patient was previously taking warfarin but has since discontinued as she had watchman device inserted. Patient denies any numbness, tingling, weakness, loss of range of motion, dizziness, lightheadedness, chest pain, shortness of breath, palpitations, nausea, vomiting. - Related Data Home Medications Medication Instructions Recorded Confirmed Cholecalciferol [Vitamin D3 (25 5,000 unit PO DAILY 05/28/18 04/30/19 Mcg = 1000 Iu)] Cholestyramine (with Sugar) 2 gm PO HS 05/28/18 04/30/19 [Cholestyramine Packet] Clopidogrel [Plavix] 75 mg PO DAILY 05/28/18 04/30/19 Furosemide [Lasix] 40 mg PO DAILY 05/28/18 04/30/19 Metoprolol Tartrate [Lopressor] 25 mg PO BID 05/28/18 04/30/19 Warfarin [Coumadin] 2.5 mg PO FR 05/28/18 04/30/19 Warfarin [Coumadin] 5 mg PO SUMOTUWETHSA 05/28/18 04/30/19 Fluticasone Nasal [place] [Flonase 2 spr EA NOSTRIL DAILY 04/17/19 04/30/19 Nasal [place]] Fluticasone Propion/Salmeterol 1 puff INHALATION RT-BID 04/17/19 04/30/19 [Advair 250-50 Diskus] Ipratropium Nebulized [Atrovent 0.25 mg INHALATION RT-BID PRN 04/17/19 04/30/19 Nebulized 0.2 MG/ML] Levothyroxine Sodium [Synthroid] 100 mcg PO DAILY 04/17/19 04/30/19 Potassium Chloride ER [K-Dur 20] 40 meq PO DAILY 04/17/19 04/30/19 Rosuvastatin Calcium [Crestor] 5 mg PO HS 04/17/19 04/30/19 Zinc 50 mg PO DAILY 04/17/19 04/30/19 allopurinoL [Zyloprim] 100 mg PO DAILY 04/17/19 04/30/19 levalbuterol HCL [Xopenex 0.315 mg INHALATION RT-BID PRN 04/17/19 04/30/19 Nebulized] metOLazone [Zaroxolyn] 2.5 mg PO MOWEFR 04/17/19 04/30/19 Advair (Unknown Dose) 1 puff INHALATION RT-DAILY 05/20/20 05/20/20 Cholecalciferol [Vitamin D3 (25 5,000 unit PO DAILY 05/20/20 05/20/20 Mcg = 1000 Iu)] Cholestyramine (with Sugar) 2 gm PO HS 05/20/20 05/20/20 [Cholestyramine Packet] Clopidogrel Bisulfate [Plavix] 75 mg PO DAILY 05/20/20 05/20/20 Fluticasone Nasal [place] [Flonase 2 spr EA NOSTRIL DAILY 05/20/20 05/20/20 Nasal [place]] Furosemide [Lasix] 20 mg PO DAILY 05/20/20 05/20/20 Ipratropium Nebulized [Atrovent 0.5 mg INHALATION RT-Q8H PRN 05/20/20 05/20/20 Nebulized 0.2 MG/ML] Levothyroxine Sodium [Synthroid] 100 mcg PO DAILY 05/20/20 05/20/20 Meclizine (Unknown Dose) 1 tab PO DAILY PRN 05/20/20 05/20/20 Omeprazole 20 mg PO DAILY 05/20/20 05/20/20 Potassium Chloride ER [K-Dur 20] 20 meq PO BID 05/20/20 05/20/20 Rosuvastatin Calcium [Crestor] 5 mg PO HS 05/20/20 05/20/20 Spironolactone [Aldactone] 25 mg PO DAILY 05/20/20 05/20/20 Warfarin Sodium [Coumadin] 2.5 mg PO FR 05/20/20 05/20/20 Warfarin Sodium [Coumadin] 5 mg PO SUMOTUWETHSA 05/20/20 05/20/20 Zinc 50 mg PO HS 05/20/20 05/20/20 allopurinoL [Zyloprim] 100 mg PO DAILY 05/20/20 05/20/20 levalbuterol HCL 0.63 mg INHALATION RT-BID 05/20/20 05/20/20 metOLazone [Zaroxolyn] 2.5 mg PO MOWEFR 05/20/20 05/20/20 Previous Rx's Medication Instructions Recorded Omeprazole 40 mg PO DAILY #0 05/02/19 Pantoprazole Sodium [Protonix] 40 mg PO BID #60 tablet. 05/02/19 Allergies Allergy/AdvReac Type Severity Reaction Status Date / Time codeine Allergy Unknown Verified 07/03/22 16:55 meperidine [From Demerol] Allergy Unknown Verified 07/03/22 16:55 Opioids - Morphine Analogues Allergy Swelling Verified 07/03/22 16:55 narcotics Allergy Unknown Uncoded 03/23/21 16:35 Review of Systems ROS Statement: Those systems with pertinent positive or pertinent negative responses have been documented in the HPI. ROS Other: All systems not noted in ROS Statement are negative. Past Medical History Past Medical History: Atrial Fibrillation, Cancer, COPD, GERD/Reflux, Hearing Disorder / Deafness, Thyroid Disorder Additional Past Medical History / Comment(s): Right ear. History of Any Multi-Drug Resistant Organisms: None Reported Past Surgical History: Back Surgery, Cholecystectomy, Heart Catheterization, Hysterectomy Additional Past Surgical History / Comment(s): cataracts Past Psychological History: No Psychological Hx Reported Smoking Status: Never smoker Past Alcohol Use History: Occasional Past Drug Use History: None Reported General Exam Limitations: no limitations General appearance: alert, in no apparent distress Head exam: Present: atraumatic, normocephalic, normal inspection Eye exam: Present: normal appearance, EOMI. Absent: scleral icterus, periorbital swelling Neck exam: Present: normal inspection Respiratory exam: Present: normal lung sounds bilaterally. Absent: respiratory distress, wheezes, rales, rhonchi, stridor Cardiovascular Exam: Present: regular rate, normal rhythm, normal heart sounds. Absent: systolic murmur, diastolic murmur, rubs, gallop, clicks Right Lower Leg exam: Present: full ROM, swelling (Consistent with baseline), abrasion (V-shaped abrasion probably 4 cm in total length, bleeding not controlled). Absent: tenderness Neurovascular tendon exam: Absent: motor deficit, sensory deficit Neurological exam: Present: alert, oriented X3, CN II-XII intact Psychiatric exam: Present: normal affect, normal mood Course Vital Signs 07/03/22 07/03/22 16:44 23:21 Temperature 98.2 F Pulse Rate 91 89 Respiratory 18 18 Rate Blood Pressure 138/78 135/72 O2 Sat by Pulse 98 99 Oximetry Medical Decision Making - Medical Decision Making Patient is an 87-year-old female presenting with chief complaint of bleeding abrasion to the right lower leg. Patient hit her leg on her car door today. Patient does not remember when her last tetanus was, tetanus is updated here in the ER today. Wound was treated using pressure dressing, Gelfoam, LET solution, and TXA. Patient was discharged with Gelfoam applied over wound, bleeding appeared to be well controlled, wound was dressed with gauze and Chris wrap. Educated on wound care and signs of infection. Follow-up with PCP. Report back to ER with any new or worsening symptoms. Discussed return parameters and answered all questions. Patient conveyed verbal understanding and agreed to the plan. I discussed this case with my attending Dr. Kaiser. Disposition Clinical Impression: Laceration Disposition: HOME SELF-CARE Condition: Good Instructions (If sedation given, give patient instructions): Laceration (ED), Laceration Without Closure (ED) Additional Instructions: Follow-up with PCP. Report back to ER if any new or worsening symptoms. Limited activity using the affected leg. Watch for any signs of infection, including but not limited to redness, swelling, tenderness, warmth, discharge, fever, chills, red streaks going up the leg. Is patient prescribed a controlled substance at d/c from ED?: No Referrals: Nonstaff,Physician [Primary Care Provider] - 1-2 days Time of Disposition: 23:13
[2022-07-03 23:21] VITALS: BP 135/72; PULSE 89
== END 2022-07-03 23:22 | disposition home or self-care (01) ==
LOC: EC 16:40
DX: S80.811A Abrasion, right lower leg, initial encounter (principal); Z23 Encounter for immunization; I48.91 Unspecified atrial fibrillation; J44.9 Chronic obstructive pulmonary disease, unspecified; K21.9 Gastro-esophageal reflux disease without esophagitis; E07.9 Disorder of thyroid, unspecified; Z88.5 Allergy status to narcotic agent; Z79.899 Other long term (current) drug therapy; Z79.890 Hormone replacement therapy; Z79.51 Long term (current) use of inhaled steroids; W23.1XXA Caught, crushed, jammed, or pinched between stationary objects, initial encounter
CPT/HCPCS: 90471; 90715; 96365; 99283

== ENCOUNTER 2022-07-04 18:29 | Emergency (ER) | payer MEDICARE ==
[2022-07-04 19:22] VITALS: TEMP 98.5
--- NOTE | 2022-07-04 20:46 | ED ---
Wound/Laceration HPI - General Chief Complaint: Wound/Laceration Stated Complaint: Leg Bleeding Time Seen by Provider: 07/04/22 19:34 Source: patient Mode of arrival: wheelchair - History of Present Illness Initial Comments: Patient is an 87-year-old female who presents to the emergency department with a chief complaint of bleeding from her radiation. Patient cut her leg on the car door yesterday resulting in a skin tear over the right gibbs. Patient is on Plavix and aspirin. She could not get the bleeding to stop so she was evaluated in our emergency department. She states that it took a long time for the bleeding to stop in the emergency department.. She noticed bleeding through her dressing today. Denies chest pain, palpitations, lightheadedness, shortness of breath, or other concerns. - Related Data Home Medications Medication Instructions Recorded Confirmed Cholecalciferol [Vitamin D3 (25 5,000 unit PO DAILY 05/28/18 04/30/19 Mcg = 1000 Iu)] Cholestyramine (with Sugar) 2 gm PO HS 05/28/18 04/30/19 [Cholestyramine Packet] Clopidogrel [Plavix] 75 mg PO DAILY 05/28/18 04/30/19 Furosemide [Lasix] 40 mg PO DAILY 05/28/18 04/30/19 Metoprolol Tartrate [Lopressor] 25 mg PO BID 05/28/18 04/30/19 Warfarin [Coumadin] 2.5 mg PO FR 05/28/18 04/30/19 Warfarin [Coumadin] 5 mg PO SUMOTUWETHSA 05/28/18 04/30/19 Fluticasone Nasal [place] [Flonase 2 spr EA NOSTRIL DAILY 04/17/19 04/30/19 Nasal [place]] Fluticasone Propion/Salmeterol 1 puff INHALATION RT-BID 04/17/19 04/30/19 [Advair 250-50 Diskus] Ipratropium Nebulized [Atrovent 0.25 mg INHALATION RT-BID PRN 04/17/19 04/30/19 Nebulized 0.2 MG/ML] Levothyroxine Sodium [Synthroid] 100 mcg PO DAILY 04/17/19 04/30/19 Potassium Chloride ER [K-Dur 20] 40 meq PO DAILY 04/17/19 04/30/19 Rosuvastatin Calcium [Crestor] 5 mg PO HS 04/17/19 04/30/19 Zinc 50 mg PO DAILY 04/17/19 04/30/19 allopurinoL [Zyloprim] 100 mg PO DAILY 04/17/19 04/30/19 levalbuterol HCL [Xopenex 0.315 mg INHALATION RT-BID PRN 04/17/19 04/30/19 Nebulized] metOLazone [Zaroxolyn] 2.5 mg PO MOWEFR 04/17/19 04/30/19 Advair (Unknown Dose) 1 puff INHALATION RT-DAILY 05/20/20 05/20/20 Cholecalciferol [Vitamin D3 (25 5,000 unit PO DAILY 05/20/20 05/20/20 Mcg = 1000 Iu)] Cholestyramine (with Sugar) 2 gm PO HS 05/20/20 05/20/20 [Cholestyramine Packet] Clopidogrel Bisulfate [Plavix] 75 mg PO DAILY 05/20/20 05/20/20 Fluticasone Nasal [place] [Flonase 2 spr EA NOSTRIL DAILY 05/20/20 05/20/20 Nasal [place]] Furosemide [Lasix] 20 mg PO DAILY 05/20/20 05/20/20 Ipratropium Nebulized [Atrovent 0.5 mg INHALATION RT-Q8H PRN 05/20/20 05/20/20 Nebulized 0.2 MG/ML] Levothyroxine Sodium [Synthroid] 100 mcg PO DAILY 05/20/20 05/20/20 Meclizine (Unknown Dose) 1 tab PO DAILY PRN 05/20/20 05/20/20 Omeprazole 20 mg PO DAILY 05/20/20 05/20/20 Potassium Chloride ER [K-Dur 20] 20 meq PO BID 05/20/20 05/20/20 Rosuvastatin Calcium [Crestor] 5 mg PO HS 05/20/20 05/20/20 Spironolactone [Aldactone] 25 mg PO DAILY 05/20/20 05/20/20 Warfarin Sodium [Coumadin] 2.5 mg PO FR 05/20/20 05/20/20 Warfarin Sodium [Coumadin] 5 mg PO SUMOTUWETHSA 05/20/20 05/20/20 Zinc 50 mg PO HS 05/20/20 05/20/20 allopurinoL [Zyloprim] 100 mg PO DAILY 05/20/20 05/20/20 levalbuterol HCL 0.63 mg INHALATION RT-BID 05/20/20 05/20/20 metOLazone [Zaroxolyn] 2.5 mg PO MOWEFR 05/20/20 05/20/20 Previous Rx's Medication Instructions Recorded Omeprazole 40 mg PO DAILY #0 05/02/19 Pantoprazole Sodium [Protonix] 40 mg PO BID #60 tablet. 05/02/19 Allergies Allergy/AdvReac Type Severity Reaction Status Date / Time codeine Allergy Unknown Verified 07/04/22 19:22 meperidine [From Demerol] Allergy Unknown Verified 07/04/22 19:22 Opioids - Morphine Analogues Allergy Swelling Verified 07/04/22 19:22 narcotics Allergy Unknown Uncoded 03/23/21 16:35 Review of Systems ROS Statement: Those systems with pertinent positive or pertinent negative responses have been documented in the HPI. ROS Other: All systems not noted in ROS Statement are negative. Past Medical History Past Medical History: Atrial Fibrillation, Cancer, COPD, GERD/Reflux, Hearing Disorder / Deafness, Thyroid Disorder Additional Past Medical History / Comment(s): Right ear. History of Any Multi-Drug Resistant Organisms: None Reported Past Surgical History: Back Surgery, Cholecystectomy, Heart Catheterization, Hysterectomy Additional Past Surgical History / Comment(s): cataracts Past Psychological History: No Psychological Hx Reported Smoking Status: Never smoker Past Alcohol Use History: Occasional Past Drug Use History: None Reported General Exam General appearance: alert, in no apparent distress Head exam: Present: atraumatic, normocephalic, normal inspection Respiratory exam: Present: normal lung sounds bilaterally. Absent: respiratory distress, wheezes, rales, rhonchi, stridor Cardiovascular Exam: Present: regular rate, normal rhythm, normal heart sounds. Absent: systolic murmur, diastolic murmur, rubs, gallop, clicks Extremities exam: Present: other (v-shaped skin tear over right gibbs, minimally bleeding ) Neurological exam: Present: alert, oriented X3, CN II-XII intact Psychiatric exam: Present: normal affect, normal mood Skin exam: Present: warm, dry, intact, normal color. Absent: rash Course Vital Signs 07/04/22 07/04/22 19:17 21:15 Temperature 98.5 F Pulse Rate 90 68 Respiratory 18 16 Rate Blood Pressure 134/66 103/68 O2 Sat by Pulse 98 96 Oximetry Medical Decision Making - Medical Decision Making This is a 87-year-old female who presents with bleeding skin tear. Thorough history and examination were performed. There is a v-shaped skin tear over right gibbs, minimally bleeding. I held direct pressure for 20 minutes which stopped bleeding completely. The wound was redressed. Return parameters discussed. Dr. Howell is my attending. 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 If you notice bleeding through dressing place direct pressure on bleed with your finger for 20 minutes. Make sure right leg is elevated. Return to the emergency department experience new, concerning, or worsening symptoms. Is patient prescribed a controlled substance at d/c from ED?: No Referrals: Nonstaff,Physician [Primary Care Provider] - 1-2 days Time of Disposition: 20:46
[2022-07-04 21:16] VITALS: BP 103/68; PULSE 68; RESP 16
== END 2022-07-04 21:16 | disposition home or self-care (01) ==
LOC: EC 18:29
DX: I83.91 Asymptomatic varicose veins of right lower extremity (principal); S81.811A Laceration without foreign body, right lower leg, initial encounter; J44.9 Chronic obstructive pulmonary disease, unspecified; K21.9 Gastro-esophageal reflux disease without esophagitis; E07.9 Disorder of thyroid, unspecified; Z79.899 Other long term (current) drug therapy; Z79.83 Long term (current) use of bisphosphonates; W26.8XXA Contact with other sharp object(s), not elsewhere classified, initial encounter
CPT/HCPCS: 99282